=== PATIENT | male | born 1975 | race Caucasian/White ===

== ENCOUNTER 2018-03-10 09:31 | Outpatient (REF) | payer MEDICAID, SELFPAY ==
[2018-03-14 11:16] LABS: Benzoylecgonine 209 ng/mL (Cutoff: 50); Cocaine Negative ng/mL (Cutoff: 50); Cocaine Interpretation Positive.
== END 2018-03-10 09:51 ==
LOC: NCHCN 09:31
PROVIDERS: PCP Family Medicine; Visit Provider Family Medicine
DX: F11.20 Opioid dependence, uncomplicated (principal)
CPT/HCPCS: 80353

== ENCOUNTER 2018-10-30 07:51 | Emergency (ER) | payer MEDICAID, SELFPAY ==
[2018-10-30 08:00] VITALS: BP 140/78; PULSE 88; RESP 16; TEMP 36.7; O2SAT 93
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
[2018-10-30] MEDS: Ibuprofen 600 MG TAB PO (08:20)
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
== END 2018-10-30 09:15 | disposition home or self-care (01) ==
PROVIDERS: Emergency Provider Physician Assistant; PCP Family Medicine
DX: S93.401A Sprain of unspecified ligament of right ankle, initial encounter (principal); S93.601A Unspecified sprain of right foot, initial encounter; V43.03XA Car driver injured in collision with pick-up truck in nontraffic accident, initial encounter
CPT/HCPCS: 99284; 73610; 73630; 99282

== ENCOUNTER 2018-12-07 13:08 | Emergency (ER) | payer MEDICAID, OTHER, SELFPAY ==
[2018-12-07 13:21] VITALS: BP 107/67; PULSE 69; RESP 18; TEMP 36.8; O2SAT 95
--- NOTE | 2018-12-07 13:28 | DI.RAD_ITS ---
SYMPTOMS/DIAGNOSIS: LATERAL PAIN AND SWELLING LEFT ANKLE: Three views were obtained. The ankle mortise appears well maintained. There is minimal marginal osteophyte formation at multiple sites. No other significant bony abnormality seen. 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
--- NOTE | 2018-12-07 13:28 | W.ED.GENAD ---
Discharge Plan Disposition Patient Disposition: HOME Condition: Improving Discharge Details Chief Complaint: Orthopedic Clinical Impression: Left ankle sprain Primary Care Provider: Juan Diego Pop ED Provider: Domingo Salazar Home Meds and New Rx's Prescriptions: Continued buprenorphine-naloxone [Suboxone] 1 EACH film 1 film PO DAILY RF: 0 ibuprofen 600 MG tablet 600 mg PO QID PRN PRN (Reason: Pain) Qty: 30 RF: 0 Discharge Instructions Instructions: Ankle Sprain (ED) Additional Instructions: Ice, elevate to reduce pain and swelling. May use Tylenol and/or ibuprofen as needed for discomfort. Walking boot to be used 7 to 10 days time at which point you may wean from immobilization. Medical Decision Making 43-year-old male presents from home after rolling his ankle while descending a ladder. He did not fall or hurt himself in any other way. He has left lateral malleoli or tenderness and swelling. Referred for x-ray which does not reveal underlying fracture, soft tissue swelling present. Consistent with lateral ankle sprain. Will place an equalizer walking boot. Patient understands outpatient plan of care, follow-up, return instructions. HPI General Mode of arrival: wheelchair. Date/Time Provider Initiated Documentation: 12/07/18 13:26. Limitations to Documentation: no limitations. Information obtained by: patient. History of Present Illness 43 year old M presents to the emergency department with the chief complaint of Rolled left ankle, described as moderate, Quality is described as aching and dull, and is localized to the left and lower extremity. Patient reports no radiation. Patient started experiencing this minute(s) and it has been constant. No relieving factors improve symptom(s), No exacerbating factors reported . Patient notes no other symptoms.. Patient did receive the following treatments prior to arrival, none Related Data Home Medications Medication Instructions Recorded Confirmed buprenorphine-naloxone [Suboxone] 1 film PO DAILY 04/30/15 12/07/18 ibuprofen 600 mg PO QID PRN PRN #30 tablet 04/30/15 12/07/18 Previous Rx's Medication Instructions Recorded ibuprofen 600 mg PO QID PRN PRN #30 tablet 04/30/15 Allergies Allergy/AdvReac Type Severity Reaction Status Date / Time No Known Allergies Allergy Unverified 12/07/18 13:24 General Stated Complaint: Orthopedic JACEY: 4 Review of Systems Review of Systems No numbness or tingling. Denies other injury 6 systems reviewed and negative [facility] Medical History Narcotic abuse in remission (Acute) Surgical History No significant past surgical history (Acute) Social History Smoking/Tobacco Use Status: Current every day Drug use: Occasionally Do you feel safe at home: Yes Do you feel safe in your relationship?: Yes Exam Narrative Exam Narrative: GEN: awake, alert, oriented 3. Pleasant, well groomed, interactive. HEAD: Normocephalic, atraumatic ENT: Mucous membranes moist, oropharynx unremarkable, External ear exam unremarkable EYES: PERRL, EOMI EXT: The left lower extremity has lateral malleoli are tenderness and swelling. 2+ DP present. Sensation intact throughout. Motor is limited by pain Neuro: Grossly normal neurologic exam, conversant, interactive. Psych: Speech fluent, thoughts congruent, affect normal Course Vital Signs Temperature 36.8 C 12/07/18 13:21 Pulse 69 12/07/18 13:21 Respiratory Rate 18 12/07/18 13:21 Blood Pressure 107/67 12/07/18 13:21 Pulse Oximetry 95 12/07/18 13:21 Temperature 36.8 C 12/07/18 13:21 Temperature Source Temporal Artery Scan 12/07/18 13:21 Pulse 69 12/07/18 13:21 Respiratory Rate 18 12/07/18 13:21 Respiratory Effort Non-Labored 12/07/18 13:22 Blood Pressure 107/67 12/07/18 13:21 Blood Pressure Position Sitting 12/07/18 13:21 Pulse Oximetry 95 12/07/18 13:21 Oxygen Delivery Method Room Air 12/07/18 13:21 Oxygen Flow Rate 0 12/07/18 13:21 Pain Level 10 12/07/18 13:23
--- NOTE | 2018-12-07 13:31 | ED.GENADUL_ITS ---
Discharge Plan Disposition Patient Disposition: HOME Condition: Improving Discharge Details Chief Complaint: Orthopedic Clinical Impression: Left ankle sprain Primary Care Provider: Juan Diego Pop ED Provider: Domingo Salazar Home Meds and New Rx's Prescriptions: Continued buprenorphine-naloxone [Suboxone] 1 EACH film 1 film PO DAILY RF: 0 ibuprofen 600 MG tablet 600 mg PO QID PRN PRN (Reason: Pain) Qty: 30 RF: 0 Discharge Instructions Instructions: Ankle Sprain (ED) Additional Instructions: Ice, elevate to reduce pain and swelling. May use Tylenol and/or ibuprofen as needed for discomfort. Walking boot to be used 7 to 10 days time at which point you may wean from immobilization. Medical Decision Making 43-year-old male presents from home after rolling his ankle while descending a ladder. He did not fall or hurt himself in any other way. He has left lateral malleoli or tenderness and swelling. Referred for x-ray which does not reveal underlying fracture, soft tissue swelling present. Consistent with lateral ankle sprain. Will place an equalizer walking boot. Patient understands outpatient plan of care, follow-up, return instructions. HPI General Mode of arrival: wheelchair . Date/Time Provider Initiated Documentation: 12/07/18 13:26 . Limitations to Documentation: no limitations . Information obtained by: patient . History of Present Illness 43 year old M presents to the emergency department with the chief complaint of Rolled left ankle, described as moderate, Quality is described as aching and dull, and is localized to the left and lower extremity. Patient reports no radiation. Patient started experiencing this minute(s) and it has been constant. No relieving factors improve symptom(s), No exacerbating factors reported . Patient notes no other symptoms.. Patient did receive the following treatments prior to arrival, none Related Data Home Medications Medication Instructions Recorded Confirmed buprenorphine-naloxone [Suboxone] 1 film PO DAILY 04/30/15 12/07/18 ibuprofen 600 mg PO QID PRN PRN #30 tablet 04/30/15 12/07/18 Previous Rx's Medication Instructions Recorded ibuprofen 600 mg PO QID PRN PRN #30 tablet 04/30/15 Allergies Allergy/AdvReac Type Severity Reaction Status Date / Time No Known Allergies Allergy Unverified 12/07/18 13:24 General Stated Complaint: Orthopedic JACEY: 4 Review of Systems Review of Systems No numbness or tingling. Denies other injury 6 systems reviewed and negative [facility] Medical History Narcotic abuse in remission (Acute) Surgical History No significant past surgical history (Acute) Social History Smoking/Tobacco Use Status: Current every day Drug use: Occasionally Do you feel safe at home: Yes Do you feel safe in your relationship?: Yes Exam Narrative Exam Narrative: GEN: awake, alert, oriented 3. Pleasant, well groomed, interactive. HEAD: Normocephalic, atraumatic ENT: Mucous membranes moist, oropharynx unremarkable, External ear exam unremarkable EYES: PERRL, EOMI EXT: The left lower extremity has lateral malleoli are tenderness and swelling. 2+ DP present. Sensation intact throughout. Motor is limited by pain Neuro: Grossly normal neurologic exam, conversant, interactive. Psych: Speech fluent, thoughts congruent, affect normal Course Vital Signs Temperature 36.8 C 12/07/18 13:21 Pulse 69 12/07/18 13:21 Respiratory Rate 18 12/07/18 13:21 Blood Pressure 107/67 12/07/18 13:21 Pulse Oximetry 95 12/07/18 13:21 Temperature 36.8 C 12/07/18 13:21 Temperature Source Temporal Artery Scan 12/07/18 13:21 Pulse 69 12/07/18 13:21 Respiratory Rate 18 12/07/18 13:21 Respiratory Effort Non-Labored 12/07/18 13:22 Blood Pressure 107/67 12/07/18 13:21 Blood Pressure Position Sitting 12/07/18 13:21 Pulse Oximetry 95 12/07/18 13:21 Oxygen Delivery Method Room Air 12/07/18 13:21 Oxygen Flow Rate 0 12/07/18 13:21 Pain Level 10 12/07/18 13:23
[2018-12-07] MEDS: Ibuprofen 800 MG TAB PO (14:05)
== END 2018-12-07 14:48 | disposition home or self-care (01) ==
PROVIDERS: Emergency Provider Emergency Medicine; PCP Family Medicine
DX: S93.402A Sprain of unspecified ligament of left ankle, initial encounter (principal); X50.9XXA Other and unspecified overexertion or strenuous movements or postures, initial encounter
CPT/HCPCS: 29515; 99283; 73610; 99282; L4361

== ENCOUNTER 2018-12-08 14:07 | Outpatient (CLI) | payer MEDICAID, SELFPAY ==
--- NOTE | 2018-12-08 09:23 | DI.RAD_ITS ---
SYMPTOM/DIAGNOSIS: ANKLE INJURY RIGHT TIB-FIB: Four views. Comparison is made with ankle examination of 12/07/18. No acute fracture or dislocation is seen. No suspicious lytic or sclerotic lesions are identified. The soft tissues are unremarkable. IMPRESSION: No acute abnormality.
== END 2018-12-08 14:27 ==
PROVIDERS: Visit Provider Physician Assistant
DX: S99.911A Unspecified injury of right ankle, initial encounter (principal)
CPT/HCPCS: 73590

== ENCOUNTER 2019-03-09 16:35 | Emergency (ER) | payer MEDICAID, SELFPAY ==
[2019-03-09 16:36] VITALS: BP 150/87; PULSE 95; RESP 16; TEMP 37.1; O2SAT 93
--- NOTE | 2019-03-09 16:52 | DI.RAD_ITS ---
EXAM: XR CHEST 2V PA LATERAL INDICATION: cough. COMPARISON: CHEST 2 VIEWS PA,LAT from 07/12/2017 TECHNIQUE: 2D digital imaging was performed. FINDINGS: The lungs are well expanded and free of infiltrate. There is no evidence of a pleural effusion or pn eumothorax. The heart is normal. No acute bony abnormality is seen. IMPRESSION: No evidence of acute cardiopulmonary disease.
--- NOTE | 2019-03-09 16:55 | ED.GENADUL_ITS ---
Discharge Plan Disposition Patient Disposition: HOME Condition: Good Discharge Details Chief Complaint: RespSymp Clinical Impression: URI (upper respiratory infection), Acute bronchospasm Primary Care Provider: Juan Diego Pop ED Provider: Ashwini Kevin Home Meds and New Rx's Prescriptions: New azithromycin 250 mg tablet See Rx Instructions .ROUTE .COMPLEX Qty: 6 RF: 0 albuterol sulfate [Proventil HFA] 90 mcg/actuation HFA aerosol inhaler 2 puff IH Q6H PRN (Reason: shortness of breath or wheezing) Qty: 8 RF: 0 benzonatate [Tessalon Perles] 100 mg capsule 100 mg PO TID PRN (Reason: cough) Qty: 10 RF: 0 No Action ibuprofen 800 mg tablet 800 mg PO TID PRN (Reason: pain) Qty: 90 RF: 2 buprenorphine-naloxone [Suboxone] 1 EACH film 1 film PO DAILY MDD 8 mg RF: 0 Discharge Instructions Instructions: Upper Respiratory Infection (ED), Bronchospasm (ED) Additional Instructions: Drink plenty of fluids. Use antibiotic as prescribed. Rest activities as tolerated. Inhaler as prescribed. Cough medication as prescribed Increase vitamin C. Follow-up with your primary care doctor for reevaluation if not improving the next 3 to 5 days. Return for any worsening, alarming symptoms or concerns sooner if needed Medical Decision Making 43-year-old patient who presents for complaints of 10 days of cough and congestion. Patient reports initially viral type symptoms now reporting increase in cough, wheezing, shortness of breath and ill feeling. Patient is concerned he has pneumonia. Ultimately on chest x-ray he does not have an identifiable pneumonia at this time. Patient was provided a updraft which did significantly help his cough and congestion. Will be provided inhaler for home as well as cough medication. Azithromycin prescribed as he reports an increase in ill feeling after 10 days of illness. Patient agrees with plan of care. Encourage close follow-up with his primary care doctor if not improving in the expected timeframe of 3 to 5 days. Patient reports his understanding. Alarming symptoms discussed. The patient was stable and requested discharge. Prior to discharge, my usual and customary return precautions were reviewed with the patient - this included follow-up instructions and reasons to return to the Emergency Department if conditions worsens, does not improve as expected, or other new concerns arise. HPI General Date/Time Provider Initiated Documentation: 03/09/19 16:45 . HPI Narrative: Very pleasant 43-year-old man presents for complaints of cough, shortness of breath, wheezing and illness. Patient reports 10 days ago onset of nasal congestion, sore throat, sinus pain and pressure and coughing. Patient reports he is feeling increasingly ill in the last few days with associated shortness of breath and wheezing, cough more bothersome at night. Patient denies any measured fever. Patient denies nausea, vomiting, diarrhea. Patient is concerned with productive cough and discoloration of nasal drainage for possible bacterial infection. Patient concerned he may have pneumonia. Denies headache or dizziness. No other concerns or complaints at this time. Related Data Home Medications Medication Instructions Recorded Confirmed buprenorphine-naloxone [Suboxone] 1 film PO DAILY MDD 8 mg 04/30/15 03/09/19 ibuprofen 800 mg tablet 800 mg PO TID PRN #90 tab 12/08/18 03/09/19 albuterol sulfate [Proventil HFA] 2 puff IH Q6H PRN #8 gm 03/09/19 azithromycin See Rx Instructions .ROUTE 03/09/19 .COMPLEX #6 tab benzonatate [Tessalon Perles] 100 mg PO TID PRN #10 cap 03/09/19 Previous Rx's Medication Instructions Recorded ibuprofen 800 mg tablet 800 mg PO TID PRN #90 tab 12/08/18 albuterol sulfate [Proventil HFA] 2 puff IH Q6H PRN #8 gm 03/09/19 azithromycin See Rx Instructions .ROUTE 03/09/19 .COMPLEX #6 tab benzonatate [Tessalon Perles] 100 mg PO TID PRN #10 cap 03/09/19 Allergies Allergy/AdvReac Type Severity Reaction Status Date / Time No Known Allergies Allergy Unverified 03/09/19 16:41 General Stated Complaint: RespSymp JACEY: 3 Review of Systems Review of Systems ROS Unobtainable: All systems reviewed & are unremarkable except as noted in HPI and below Constitutional Constitutional: Denies chills, Denies fever(s) and Reports malaise ENT Ears, Nose, Mouth, and Throat: Denies otalgia, Reports nasal discharge, Reports sinus pain, Reports sinus pressure and Reports sore throat Respiratory Respiratory: Reports cough and Reports wheezing Gastrointestinal Gastrointestinal: Denies diarrhea, Denies nausea and Denies vomiting Allergic/Immunologic Allergic/Immunologic: Reports wheezing [facility] Medical History Narcotic abuse in remission (Acute) Surgical History No significant past surgical history (Acute) Social History Smoking/Tobacco Use Status: Current every day Alcohol Intake: never Drug use: Occasionally Substance use type: marijuana Do you feel safe at home: Yes Do you feel safe in your relationship?: Yes Exam Narrative Exam Narrative: CONST: Healthy appearing patient, in no acute distress. Well hydrated. Alert and alert. HENMT: Head nomocephalic, normal to inspection. Atraumatic. Hearing grossly normal. Pharyngeal erythema present. No TM bulging, mild erythema present. EYES: General normal appearance. Alignment normal. Eyelids normal. Conjunctiva normal. NECK: Normal visual inspection. FROM. Trachea midline. No Midline tenderness. Cervical lymphadenopathy present CHEST: Normal insepection of the chest. RESP: Normal respiratory effort. Speaking full sentences. No cough. Diffuse scattered wheezes. No retractions. CARDIO: No JVD. No murmurs or rubs. MUSCULOSKELETAL: Normal Gait. FROM of all extremities. SKIN: Normal. Dry. No rashes. NEURO: Alert and awake. Speech clear. PSYCH: Normal affect. Cooperative. Course Vital Signs Vital signs: Vital Signs Temperature 37.1 C 03/09/19 16:36 Pulse 95 H 03/09/19 16:36 Respiratory Rate 16 03/09/19 16:36 Blood Pressure 150/87 H 03/09/19 16:36 Pulse Oximetry 93 L 03/09/19 16:36 Temperature 37.1 C 03/09/19 16:36 Temperature Source Skin 03/09/19 16:36 Pulse 95 H 03/09/19 16:36 Respiratory Rate 16 03/09/19 16:36 Respiratory Effort 03/09/19 16:44 Respiratory Depth Normal 03/09/19 16:44 Blood Pressure 150/87 H 03/09/19 16:36 Blood Pressure Position Sitting 03/09/19 16:36 Pulse Oximetry 93 L 03/09/19 16:36 Oxygen Delivery Method Room Air 03/09/19 16:36 Oxygen Flow Rate 0 03/09/19 16:36 Pain Level 7 03/09/19 16:36 Comment has not been smoking past couple days 03/09/19 16:36
[2019-03-09] MEDS: Albuterol/Ipratropium 3 ML UPD VIAL UPD (17:39)
--- NOTE | 2019-03-09 18:05 | DI.VRAD_ITS ---
PROCEDURE INFORMATION: Exam: XR Chest, 2 Views Exam date and time: 03/09/2019 6:00 PM Clinical history: 43 years old, male; Other: Cough TECHNIQUE: Imaging protocol: XR of the chest Views: 2 views. COMPARISON: CR CHEST 2 VIEWS PA,LAT 07/12/2017 10:37 AM FINDINGS: Lungs: Unremarkable. No consolidation. Pleural space: Unremarkable. No pleural effusion. No pneumothorax. Heart/Mediastinum: Unremarkable. No cardiomegaly. Bones/joints: Unremarkable. IMPRESSION: No acute findings. Dictated and Authenticated by: Roseline Alvarez MD. Ordering:TYLER Maradiaga MD
[2019-03-09 18:59] VITALS: BP 140/77; PULSE 90; TEMP 37.4; O2SAT 91
[2019-03-09 19:02] VITALS: BP 140/77; PULSE 90; TEMP 37.4; O2SAT 91
== END 2019-03-09 19:06 | disposition home or self-care (01) ==
PROVIDERS: Emergency Provider Physician Assistant; PCP Family Medicine
DX: J06.9 Acute upper respiratory infection, unspecified (principal); J98.01 Acute bronchospasm
CPT/HCPCS: 94640; 99283; 71046; J7620

== ENCOUNTER 2020-04-15 10:45 | Outpatient (CLI) | payer MEDICAID, SELFPAY ==
--- NOTE | 2020-04-15 | DI.RAD_ITS ---
EXAM: XR ANKLE RT COMPLETE CLINICAL HISTORY: ANKLE PAIN RT, M25.571, RECURRENCE OF HIGH ANKLE SPRAIN ?. TECHNIQUE: 2D digital imaging was performed. COMPARISON: CR XR ANKLE RT COMPLETE from 10/30/2018 CR XR ANKLE RT COMPLETE from 04/15/2020 FINDINGS: BONES: No acute fracture is present. No bony destructive lesion is seen. JOINTS: The ankle mortise is normally aligned. SOFT TISSUE: Normal. IMPRESSION: Unremarkable radiographs of the right ankle. DATA REPOSITORY: RADIATION DOSE DELIVERED:
--- NOTE | 2020-04-15 | DI.RAD_ITS ---
EXAM: XR ANKLE RT COMPLETE CLINICAL HISTORY: FOOT DEFORMITY, M21.6x9, FIRM MOBILE NODULE OVER 1ST TOE COMP DEP PROTOCAL.. TECHNIQUE: 2D digital imaging was performed. COMPARISON: CR XR ANKLE RT COMPLETE from 04/15/2020 FINDINGS: BONES: No acute fracture is present. No bony destructive lesion is seen. JOINTS: No dislocation present. Mild degenerative changes in the foot. SOFT TISSUE: Normal. IMPRESSION: No acute fracture or dislocation of the right foot. DATA REPOSITORY: RADIATION DOSE DELIVERED:
== END 2020-04-15 11:05 ==
PROVIDERS: PCP Family Medicine; Visit Provider Family Medicine
DX: M21.6X1 Other acquired deformities of right foot (principal); M25.571 Pain in right ankle and joints of right foot
CPT/HCPCS: 73610

== ENCOUNTER 2020-06-11 09:41 | Emergency (ER) | payer MEDICAID, SELFPAY ==
[2020-06-11] VITALS (11 sets, daily range): BP systolic 117–124; BP diastolic 68–99; PULSE 49–68; RESP 9–25; TEMP 36.1–36.7; O2SAT 94–98
--- OUTSIDE RECORDS SUMMARY | 2020-06-11 09:53 | XMS_ITS ---
:1975 Author Care Team Providers Name Role Phone DR. FRANCINE ABARCA Primary Care Provider [phone] DR. FRANCINE ABARCA Referring Provider [phone] Allergies Code Code System Name Reaction Severity Status Onset NKDA ? Medications Name Status Start Date Stop Date ? ? Nicoderm CQ 21 mg/24 hr daily transdermal patch Active ? Not available Apply 1 patch every day by transdermal route. Nicorette 2 mg gum Active ? Not available Chew 1 piece of gum every 2 hours by oral route. omeprazole 20 mg tablet,delayed release Completed ? 08/24/2017 Take 1 tablet every day by oral route. Suboxone 8 mg-2 mg sublingual film Active ? Not available Place 1 film every day by sublingual route. triamcinolone acetonide 0.5 % topical cream Completed ? 08/24/2017 APPLY A THIN LAYER TO THE AFFECTED AREA(S) BY TOPICAL ROUTE 2 T IMES PER DAY Problems Name Status Onset Date Source ? Onychomycosis Active ? ? Anxiety Disorder Active ? ? Opioid Dependence Active ? ? Attention Deficit Hyperactivity Disorder Active ? ? Insomnia Active ? ? Tarsal Tunnel Syndrome Active ? ? Dental Caries Active ? ? Gastroesophageal Reflux Disease Active ? ? Psoriasis Active ? ? Lichen Planus Active ? ? Torticollis Active ? ? Plantar Fasciitis Active ? ? Paresthesia Active ? ? Pleuritic Pain Active ? ? History of Smoking Active ? ? Family History of Diabetes Mellitus Active ? ? Foreign Body Active ? ? Procedures None recorded. Results Lab Results None recorded. Past Encounters None recorded. Social History Tobacco Smoking Status Current Every Day Smoker Notes: Vaccine List None recorded. Plan of Care Reminders Provider Appointments None ? ? recorded. Lab None ? ? recorded. Referral None ? ? recorded. Procedures None ? ? recorded. Surgeries None ? ? recorded. Imaging None ? ? recorded. Vitals Height Weight BMI Blood Pressure 190.5 cm 129.27 kg 35.6 kg/m2 124/78 mm[Hg]
[2020-06-11] MEDS: Normal Saline 1,000 ML 1000 ML IV (10:06)
[2020-06-11] MEDS: Ondansetron 4 MG/2 ML VIAL IVP (10:10)
[2020-06-11 10:18] LABS: Abs Immature Grans 0.02 10^3/uL (0.0-0.06); Absolute Basophil Count 0.04 10^3/uL (0.0-0.2); Absolute Eosinophil Count 0.45 10^3/uL (0.0-0.7); Absolute Lymphocyte Count 3.01 10^3/uL (1.2-3.4); Absolute Monocyte Count 1.06 10^3/uL (0.1-0.8); Absolute Neutrophil Count 4.93 10^3/uL (1.2-6.7); Basophils % 0.4; Eosinophils % 4.7; Immature Grans % 0.2; Lymphocytes % 31.7; MCHC 33.3 % (32.0-36.0); MCV 93.1 fL (80-95); MPV 9.7 fL (8.0-11.0); Monocytes % 11.1; Neutrophils % 51.9; Nucleated RBC 0 %; Platelet Count 323 10^3/uL (130-400); RBC 4.51 10^6/uL (4.36-5.78); RDW 12.2 % (11.8-14.1); WBC 9.51 10^3/uL (4.4-10.8)
[2020-06-11 10:21] LABS: Bilirubin Negative (Negative); Blood Negative (Negative); Clarity Clear (Clear); Glucose Negative (Negative); Ketones Negative (Negative); Leukocyte Esterase Negative (Negative); Nitrite Negative (Negative); Specific Gravity >= 1.030 (1.005-1.025); Urobilinogen 0.2 EU/dL (Up TO 0.2)
[2020-06-11 10:29] LABS: ALT 34 U/L (16-63); AST 21 U/L (15-37); Albumin 3.6 g/dL (3.4-5.0); Alkaline Phosphatase 102 U/L (46-116); Anion Gap 8.4 mmol/L (3-11); BUN 20 mg/dL (7-18); Bilirubin, Total 0.2 mg/dL (0.2-1.0); CO2 27.6 mmol/L (21.0-32.0); CREATININE 1.26 mg/dL (0.70-1.30); Calcium 8.3 mg/dL (8.5-10.1); Chloride 103 mmol/L (98-107); Glucose 106 mg/dL (74-106); Lipase 269 U/L (73-393); Potassium 4.2 mmol/L (3.5-5.1); Sodium 139 mmol/L (136-145); Total Protein 6.9 g/dL (6.4-8.2)
--- NOTE | 2020-06-11 10:45 | DI.US_ITS ---
EXAM: US ABDOMEN CLINICAL HISTORY: RUQ pain TECHNIQUE: Ultrasound abdomen performed using standard protocol. COMPARISON: No exams were available for comparison FINDINGS: LIVER: Enlarged, measuring 18.6 cm in length. Increased echogenicity, consistent with mild fatty inf iltration. No focal liver lesions are seen.. GALLBLADDER: No evidence of cholelithiasis. No evidence of wall thickening. No pericholecystic fluid identified. SOSA'S SIGN: Negative. BILIARY SYSTEM: No intrahepatic or extrahepatic biliary ductal dilation. KIDNEYS: Kidneys are symmetric in size. No evidence of renal calculi. No evidence of hydronephrosis. No renal mass or cyst identified. PANCREAS: Normal where visualized. SPLEEN: Not enlarged. Scattered calcifications consistent with old healed granulomatous disease. ABDOMINAL AORTA AND IVC: Visualized portions normal caliber. ASCITES: None seen. IMPRESSION: Hepatomegaly. Mild fatty infiltration. DATA REPOSITORY:
--- NOTE | 2020-06-11 11:40 | W.ED.GENAD ---
Discharge Plan Disposition Patient Disposition: HOME Condition: Stable Discharge Details Clinical Impression: Abdominal pain, Biliary colic Primary Care Provider: Juan Diego Pop ED Provider: Júnior Eddy Home Meds and New Rx's Prescriptions: New ondansetron HCl [Zofran] 4 mg tablet 4 mg PO Q8H PRNQty: 10 RF: 0 Continued ibuprofen 800 mg tablet 800 mg PO TID PRN (Reason: pain) Qty: 90 RF: 2 buprenorphine-naloxone [Suboxone] 1 EACH film 1 film PO DAILY MDD 8 mg RF: 0 albuterol sulfate [Proventil HFA] 90 mcg/actuation HFA aerosol inhaler 2 puff IH Q6H PRN (Reason: shortness of breath or wheezing) Qty: 8 RF: 0 Discharge Instructions Instructions: Biliary Colic (ED), Abdominal Pain (ED) Additional Instructions: Laboratory values and ultrasound did not reveal any obvious emergent process. Incidental fatty liver found however I do not believe that is causing your symptoms today. As we discussed this is likely your gallbladder. Zofran as directed. We discussed dietary precautions such as avoiding fatty, fried, greasy foods. [id number] Tylenol and/or Motrin as directed for discomfort. Please watch for new or worsening symptoms and return to the ER for any concerns. I would like you to reach out to the surgical team tomorrow for prompt outpatient reevaluation. I have placed you on the surgical list and given you Dr. Harris's name and number. Referrals: Laurel Harris DO [OSTEOPATHIC DOCTOR] - Discharge Data Discharge Date/Time-TO BE ENTERED AT DEPARTURE: 06/11/20 12:32 Medical Decision Making 44-year-old gentleman with past history that includes opiate abuse, in remission for the past 7 years, presents for abdominal pain right upper quadrant and nausea for the past 2 days worsening in nature. Reports that pain is made slightly worse after eating but not significantly. No other symptoms whatsoever. Clinically he appears well, nontoxic. He is afebrile and normotensive. He does have reproducible right upper quadrant discomfort. Clinically certainly suspicious for biliary colic, acute cholecystitis, etc. but certainly cannot rule out pancreatitis, musculoskeletal strain, gastritis, peptic ulcer disease, appendicitis, etc. Will obtain IV access, CBC, CMP, lipase, urinalysis and give 4 mg IV Zofran. Patient is requesting to drink his [employer] coffee, requests that he be n.p.o. until we complete his work-up. CBC, CMP, lipase, urinalysis unremarkable for obvious emergent process. Patient reports that his nausea is improving with Zofran. Given his right upper quadrant pain but normal laboratory studies, will obtain ultrasound of his abdomen. Ultrasound read by radiology as hepatomegaly, mild fatty infiltrate, otherwise unremarkable. Negative Kilpatrick sign. Dr. Hernandez evaluated the patient, please see his note. Discussed ultrasound and laboratory values with patient. He is relieved, but we still do not have a clear source of his pain. He is scheduled to be seen by his primary care provider tomorrow. Given his right upper quadrant discomfort, nausea, made worse with food, will also place on the surgical list and give a surgical referral. We discussed dietary changes for potential biliary colic. We will also provide a prescription of Zofran for his symptoms. Patient is comfortable with this plan and has no additional questions or concerns. He was encouraged to return to the ER for new or worsening symptoms. Medical Records Medical records reviewed: Yes I reviewed the patient's medical records. Lab Data Lab results reviewed: Yes I reviewed the patient's lab results. Labs: Laboratory Tests Range/Units 06/11/20 06/11/20 06/11/20 10:04 10:04 10:05 WBC (4.4-10.8) 10^3/uL 9.51 RBC (4.36-5.78) 10^6/uL 4.51 Hgb (13.5-17.5) g/dL 14.0 Hct (40.0-50.0) % 42.0 MCV (80-95) fL 93.1 MCH (27.0-33.0) pg 31.0 MCHC (32.0-36.0) % 33.3 RDW (11.8-14.1) % 12.2 Plt Count (130-400) 10^3/uL 323 MPV (8.0-11.0) fL 9.7 Immature Gran % 0.2 Neutrophils % 51.9 Lymphocytes % 31.7 Monocytes % 11.1 Eosinophils % 4.7 Basophils % 0.4 Nucleated RBC % % 0 Absolute Neutrophils (1.2-6.7) 10^3/uL 4.93 Absolute Lymphocytes (1.2-3.4) 10^3/uL 3.01 Absolute Monocytes (0.1-0.8) 10^3/uL 1.06 H Absolute Eosinophils (0.0-0.7) 10^3/uL 0.45 Absolute Basophils (0.0-0.2) 10^3/uL 0.04 Sodium (136-145) mmol/L 139 Potassium (3.5-5.1) mmol/L 4.2 Chloride (98-107) mmol/L 103 Carbon Dioxide (21.0-32.0) mmol/L 27.6 Anion Gap (3-11) mmol/L 8.4 BUN (7-18) mg/dL 20 H Creatinine (0.70-1.30) mg/dL 1.26 Estimated GFR/1.73 m2 (mL/min/1.73m2) >= 60.00 Glucose (74-106) mg/dL 106 Calcium (8.5-10.1) mg/dL 8.3 L Magnesium (1.8-2.4) mg/dL 2.0 Total Bilirubin (0.2-1.0) mg/dL 0.2 AST (15-37) U/L 21 ALT (16-63) U/L 34 Alkaline Phosphatase (46-116) U/L 102 Total Protein (6.4-8.2) g/dL 6.9 Albumin (3.4-5.0) g/dL 3.6 Lipase (73-393) U/L 269 Urine Color (Yellow) Yellow Urine Clarity (Clear) Clear Urine pH (5-8) 6.0 Ur Specific [place] (1.005-1.025) >= 1.030 H Urine Protein (Negative) mg/dL Negative Urine Ketones (Negative) mg/dL Negative Urine Blood (Negative) Negative Urine Nitrite (Negative) Negative Urine Bilirubin (Negative) Negative Urine Urobilinogen (Up TO 0.2) EU/dL 0.2 Ur Leukocyte Esterase (Negative) Negative Urine Glucose (Negative) mg/dL Negative HPI General Mode of arrival: ambulatory. Date/Time Provider Initiated Documentation: 06/11/20 09:55. Limitations to Documentation: no limitations. Information obtained by: patient. HPI Narrative: This is a 44-year-old male, past medical history that includes narcotic abuse, in remission for 7 years. He is presenting to the ER today for evaluation of right upper quadrant pain and nausea that began 2 days ago. Denies recent illness or trauma. States the pain started as mild, now is moderate in nature. Food may make it slightly worse but is not overtly noticeable. He reports nausea but no vomiting. He presents drinking a [employer] coffee here in the ER. He denies fever, chest pain, shortness of breath, dysuria, hematuria, diarrhea or constipation. He reports that the pain occasionally radiates into his back. He denies ever having had symptoms like this before. Has not taken any [id number] medication for his symptoms. He is scheduled to be seen by his primary care provider tomorrow. Related Data Home Medications Medication Instructions Recorded Confirmed buprenorphine-naloxone [Suboxone] 1 film PO DAILY MDD 8 mg 04/30/15 06/11/20 ibuprofen 800 mg tablet 800 mg PO TID PRN #90 tab 12/08/18 06/11/20 albuterol sulfate [Proventil HFA] 2 puff IH Q6H PRN #8 gm 03/09/19 06/11/20 ondansetron HCl [Zofran] 4 mg PO Q8H PRN #10 tab 06/11/20 Previous Rx's Medication Instructions Recorded ibuprofen 800 mg tablet 800 mg PO TID PRN #90 tab 12/08/18 albuterol sulfate [Proventil HFA] 2 puff IH Q6H PRN #8 gm 03/09/19 ondansetron HCl [Zofran] 4 mg PO Q8H PRN #10 tab 06/11/20 Allergies Allergy/AdvReac Type Severity Reaction Status Date / Time No Known Allergies Allergy Unverified 06/11/20 09:49 General Stated Complaint: Abd Prob JACEY: 3 Review of Systems Constitutional Constitutional: Denies fever(s) and Denies headache(s) ENT Ears, Nose, Mouth, and Throat: Denies headache(s) Cardiovascular Cardiovascular: Denies chest pain and Denies dyspnea Respiratory Respiratory: Denies dyspnea Gastrointestinal Gastrointestinal: Reports abdominal pain, Denies constipation, Denies diarrhea, Reports nausea and Denies vomiting Genitourinary Genitourinary: Denies dysuria Musculoskeletal Musculoskeletal: Reports back pain Integumentary/Breasts Skin/Breast: Denies rash Neurologic Neurologic: Denies headache(s) [facility] Medical History Narcotic abuse in remission Surgical History No significant past surgical history Social History Smoking/Tobacco Use Status: Current every day Tobacco Type: cigarettes Smoking risk assessment performed?: Yes Alcohol Intake: never Drug use: Occasionally Substance use type: marijuana Do you feel safe at home: Yes Do you feel safe in your relationship?: Yes Exam Const General: cooperative, healthy appearing, comfortable and no acute distress Orientation: alert, awake and oriented x3 HENMT Head: normal to inspection, normocephalic and atraumatic Eyes General: appearance normal, both eyes and all related structures Conjunctivae: conjunctivae normal Sclera: sclerae normal Neck Neck: normal visual inspection, full ROM, no meningeal signs, trachea midline and supple Resp Effort & Inspection: normal respiratory effort and able to speak in complete sentences Auscultation: clear to auscultation bilaterally Cardio Rate: regular rate Rhythm: regular rhythm GI Inspection: normal to inspection Palpation: soft, not firm, no guarding, no pulsatile masses and tender in the LUQ; Kilpatrick's sign negative and with no rebound tenderness Auscultation: normal bowel sounds Back/Spine/Pelvis Back: back tenderness (Diffuse mild right upper lumbar, lower thoracic) Skin General skin exam: no rashes or lesions noted Neuro General: patient alert, patient awake, moves all extremities and no focal motor deficits Cognition: normal cognition Speech: speech normal Gait: normal gait Sensory Exam: no sensory deficits noted Psych Appearance: grossly normal Mental Status: mental status grossly normal Course Vital Signs Vital signs: Vital Signs Temperature 36.1 C L 06/11/20 09:44 Pulse 68 06/11/20 09:44 Blood Pressure 122/75 06/11/20 09:44 Pulse Oximetry 97 06/11/20 09:44 Temperature 36.1 C L 06/11/20 09:44 Temperature Source Temporal Artery Scan 06/11/20 09:44 Pulse 61 06/11/20 09:47 Pulse 55 L 06/11/20 10:40 Respiratory Rate 25 H 06/11/20 10:40 Respiratory Effort Non-Labored 06/11/20 09:48 Blood Pressure 122/75 06/11/20 09:47 Blood Pressure Mean 86 06/11/20 09:47 Blood Pressure Position Sitting 06/11/20 09:44 Pulse Oximetry 96 06/11/20 10:40 Oxygen Delivery Method Room Air 06/11/20 09:44 Oxygen Flow Rate 0 06/11/20 09:44 Pain Level 8 06/11/20 09:44 Lab/Test Results Lab/Test Results: Laboratory Tests Range/Units 06/11/20 06/11/20 06/11/20 10:04 10:04 10:05 WBC (4.4-10.8) 10^3/uL 9.51 RBC (4.36-5.78) 10^6/uL 4.51 Hgb (13.5-17.5) g/dL 14.0 Hct (40.0-50.0) % 42.0 MCV (80-95) fL 93.1 MCH (27.0-33.0) pg 31.0 MCHC (32.0-36.0) % 33.3 RDW (11.8-14.1) % 12.2 Plt Count (130-400) 10^3/uL 323 MPV (8.0-11.0) fL 9.7 Immature Gran % 0.2 Neutrophils % 51.9 Lymphocytes % 31.7 Monocytes % 11.1 Eosinophils % 4.7 Basophils % 0.4 Nucleated RBC % % 0 Absolute Neutrophils (1.2-6.7) 10^3/uL 4.93 Absolute Lymphocytes (1.2-3.4) 10^3/uL 3.01 Absolute Monocytes (0.1-0.8) 10^3/uL 1.06 H Absolute Eosinophils (0.0-0.7) 10^3/uL 0.45 Absolute Basophils (0.0-0.2) 10^3/uL 0.04 Sodium (136-145) mmol/L 139 Potassium (3.5-5.1) mmol/L 4.2 Chloride (98-107) mmol/L 103 Carbon Dioxide (21.0-32.0) mmol/L 27.6 Anion Gap (3-11) mmol/L 8.4 BUN (7-18) mg/dL 20 H Creatinine (0.70-1.30) mg/dL 1.26 Estimated GFR/1.73 m2 (mL/min/1.73m2) >= 60.00 Glucose (74-106) mg/dL 106 Calcium (8.5-10.1) mg/dL 8.3 L Magnesium (1.8-2.4) mg/dL 2.0 Total Bilirubin (0.2-1.0) mg/dL 0.2 AST (15-37) U/L 21 ALT (16-63) U/L 34 Alkaline Phosphatase (46-116) U/L 102 Total Protein (6.4-8.2) g/dL 6.9 Albumin (3.4-5.0) g/dL 3.6 Lipase (73-393) U/L 269 Urine Color (Yellow) Yellow Urine Clarity (Clear) Clear Urine pH (5-8) 6.0 Ur Specific [place] (1.005-1.025) >= 1.030 H Urine Protein (Negative) mg/dL Negative Urine Ketones (Negative) mg/dL Negative Urine Blood (Negative) Negative Urine Nitrite (Negative) Negative Urine Bilirubin (Negative) Negative Urine Urobilinogen (Up TO 0.2) EU/dL 0.2 Ur Leukocyte Esterase (Negative) Negative Urine Glucose (Negative) mg/dL Negative
--- NOTE | 2020-06-11 12:47 | NUR.NOTE ---
Referral to [facility] for [facility]-2 week follow up for abd painNursing Note:
== END 2020-06-11 12:32 | disposition home or self-care (01) ==
PROVIDERS: Emergency Provider Physician Assistant; PCP Family Medicine
DX: K76.0 Fatty (change of) liver, not elsewhere classified (principal); K82.9 Disease of gallbladder, unspecified
CPT/HCPCS: 36415; 80053; 83690; 96361; 96374; 99284; 76700; 81003; 83735; 85025; J2405

== ENCOUNTER 2020-06-12 16:24 | Outpatient (REF) | payer MEDICAID, SELFPAY ==
[2020-06-20 10:00] LABS: Benzoylecgonine 208 ng/mL (Cutoff: 50); Cocaine Negative ng/mL (Cutoff: 50); Cocaine Interpretation Positive.
== END 2020-06-12 16:44 ==
LOC: NCHCN 16:24
PROVIDERS: PCP Family Medicine; Visit Provider Family Medicine
DX: F11.20 Opioid dependence, uncomplicated (principal)
CPT/HCPCS: 80353

== ENCOUNTER 2020-08-07 19:18 | Outpatient (REF) | payer MEDICAID, SELFPAY ==
[2020-08-10 13:14] LABS: Codeine 224 ng/mL (Cutoff: 25); Dihydrocodeine Negative ng/mL (Cutoff: 25); Hydrocodone Negative ng/mL (Cutoff: 25); Hydromorphone Negative ng/mL (Cutoff: 25); Morphine 491 ng/mL (Cutoff: 25); Naloxone 366 ng/mL (Cutoff: 25); Norhydrocodone Negative ng/mL (Cutoff: 25); Noroxycodone Negative ng/mL (Cutoff: 25); Noroxymorphone Negative ng/mL (Cutoff: 25); Opiates Interpretation Positive.
== END 2020-08-07 19:19 | disposition home or self-care (01) ==
LOC: NCHCN 19:18
PROVIDERS: PCP Family Medicine; Visit Provider Family Medicine
DX: F11.20 Opioid dependence, uncomplicated (principal)
CPT/HCPCS: 80361; 80362

== ENCOUNTER 2020-10-23 17:56 | Outpatient (REF) | payer MEDICAID, SELFPAY ==
[2020-10-26 09:38] LABS: Benzoylecgonine 564 ng/mL (Cutoff: 50); Cocaine Negative ng/mL (Cutoff: 50); Cocaine Interpretation Positive.
== END 2020-10-23 17:57 | disposition home or self-care (01) ==
LOC: NCHCN 17:56
PROVIDERS: PCP Family Medicine; Visit Provider Family Medicine
DX: F11.20 Opioid dependence, uncomplicated (principal)
CPT/HCPCS: 80353

== ENCOUNTER 2020-11-06 20:49 | Outpatient (REF) | payer MEDICAID, SELFPAY ==
[2020-11-12 13:08] LABS: Benzoylecgonine 106 ng/mL (Cutoff: 50); Cocaine Negative ng/mL (Cutoff: 50); Cocaine Interpretation Positive.
== END 2020-11-06 20:50 | disposition home or self-care (01) ==
LOC: NCHCN 20:49
PROVIDERS: PCP Family Medicine; Visit Provider Family Medicine
DX: F11.20 Opioid dependence, uncomplicated (principal)
CPT/HCPCS: 80353

== ENCOUNTER 2021-01-01 06:08 | Emergency (ER) | payer MEDICAID, SELFPAY ==
[2021-01-01 06:10] VITALS: BP 131/66; PULSE 64; RESP 16; TEMP 36.4; O2SAT 98
--- NOTE | 2021-01-01 06:15 | ED.GENADUL_ITS ---
Discharge Plan Disposition Patient Disposition: HOME Condition: Stable Discharge Details Clinical Impression: Foreign body of right eye Primary Care Provider: Juan Diego Pop ED Provider: Roman Lobo Home Meds and New Rx's Prescriptions: Continued ibuprofen 800 mg tablet 800 mg PO TID PRN (Reason: pain) Qty: 90 RF: 2 pantoprazole 20 mg tablet,delayed release (DR/EC) 20 mg PO DAILY RF: 0 buprenorphine-naloxone [Suboxone] 2-0.5 mg film 1 film buccal DAILY RF: 0 triamcinolone acetonide 0.1 % cream 1 applic topical BID RF: 0 nicotine (polacrilex) 2 mg gum 2 mg buccal Q1H RF: 0 nicotine 21 mg/24 hr patch 24 hour 1 patch transdermal Q24H RF: 0 buprenorphine-naloxone [Suboxone] 1 EACH film 1 film PO DAILY MDD 8 mg RF: 0 ondansetron HCl [Zofran] 4 mg tablet 4 mg PO Q8H PRNQty: 10 RF: 0 albuterol sulfate [Proventil HFA] 90 mcg/actuation HFA aerosol inhaler 2 puff IH Q6H PRN (Reason: shortness of breath or wheezing) Qty: 8 RF: 0 Discharge Instructions Additional Instructions: You have a small foreign body and declined to have me attempt removal with a needle follow up with 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 Denies any falls or vision changes but has had right eye discomfort since so came here. He has no periorbital swelling, eomi, perrl. Left eye conjunctiva normal and right eye conjunctiva is erythematous, no drainage. HE does have what looks like a 1mm foreign body over the iris at the 5 oclock position, no other foreign bodies noted even under the eyelids. Will place tetracaine and attempt removal. 20/25 vision in both eyes on exam I placed tetracaine and had immediate relief of pain. I was able to removal a small 1mm foreign body at above stated location with a qtip, but just inferior this was another even small foreign body. I was unable to remove with q tip. I recommended attempting removal with needle but he declined. He states he'd rather have an child protective services specialist do this and is going to follow up with Kate. He understands risks of prolonging foreign body removal including decrease or permanent eye damage and is still willing to accept these risks and has capacity to make his own decisions. HE had reassuring flourescein testing that he has no globe rupture. I did advise if he is unable to see Paragnathalie today he should return to the Emergency dept for removal of the foreign body. Differential Diagnosis Differential Diagnosis: foreign body, corneal abrasion HPI General Mode of arrival: ambulatory . Date/Time Provider Initiated Documentation: 01/01/21 06:09 . Limitations to Documentation: no limitations . Information obtained by: patient . History of Present Illness 45 year old M presents to the emergency department with the chief complaint of right eye pain, described as moderate, Quality is described as aching, and is localized to the eyes and right. Patient reports no radiation. Patient started experiencing this day(s) (1) and it has been constant. No relieving factors improve symptom(s), No exacerbating factors reported . Patient notes no other symptoms.. Patient did receive the following treatments prior to arrival, none Related Data Home Medications Medication Instructions Recorded Confirmed buprenorphine-naloxone [Suboxone] 1 film PO DAILY MDD 8 mg 04/30/15 06/11/20 ibuprofen 800 mg tablet 800 mg PO TID PRN #90 tab 12/08/18 06/11/20 albuterol sulfate [Proventil HFA] 2 puff IH Q6H PRN #8 gm 03/09/19 06/11/20 ondansetron HCl [Zofran] 4 mg PO Q8H PRN #10 tab 06/11/20 buprenorphine 2 mg-naloxone 0.5 mg 1 film BUCCAL DAILY 06/13/20 sublingual film nicotine (polacrilex) 2 mg gum 2 mg BUCCAL Q1H 06/13/20 nicotine 21 mg/24 hr daily 1 patch TRANSDERMAL Q24H 06/13/20 transdermal patch pantoprazole 20 mg tablet,delayed 20 mg PO DAILY 06/13/20 release triamcinolone acetonide 0.1 % 1 applic TOPICAL BID 06/13/20 topical cream Previous Rx's Medication Instructions Recorded ibuprofen 800 mg tablet 800 mg PO TID PRN #90 tab 12/08/18 albuterol sulfate [Proventil HFA] 2 puff IH Q6H PRN #8 gm 03/09/19 ondansetron HCl [Zofran] 4 mg PO Q8H PRN #10 tab 06/11/20 Allergies Allergy/AdvReac Type Severity Reaction Status Date / Time No Known Allergies Allergy Unverified 01/01/21 06:15 General Stated Complaint: EyeProblem JACEY: 4 Review of Systems All systems reviewed & are unremarkable except as noted in HPI and below Constitutional Constitutional: Denies chills and Denies fever(s) Cardiovascular Cardiovascular: Denies chest pain and Denies dyspnea Respiratory Respiratory: Denies cough and Denies dyspnea Gastrointestinal Gastrointestinal: Denies abdominal pain, Denies nausea and Denies vomiting Musculoskeletal Musculoskeletal: Denies joint swelling COUNT INCLUDES THE [facility] Medical History (Updated 01/01/21 @ 06:31 by Roman Lobo MD) Narcotic abuse in remission Surgical History No significant past surgical history Social History Smoking/Tobacco Use Status: Current every day Tobacco Type: cigarettes Smoking risk assessment performed?: Yes Alcohol Intake: never Drug use: Occasionally Substance use type: marijuana Do you feel safe at home: Yes Do you feel safe in your relationship?: Yes Exam Const General: no acute distress Orientation: alert HENMT Head: normal to inspection Ears: external ears normal General nose exam: external nose normal Mouth: moist mucous membranes Eyes Alignment and Position: alignment normal Pupils: PERRL EOM: EOM intact bilaterally Neck Neck: normal visual inspection Resp Effort & Inspection: normal respiratory effort and able to speak in complete sentences Cardio Rate: regular rate Skin General skin exam: no rashes or lesions noted Neuro General: patient alert and patient oriented x3 Extrem General: normal to inspection Psych Mental Status: mental status grossly normal Course Vital Signs Vital signs: Vital Signs Temperature 36.4 C L 01/01/21 06:10 Pulse 64 01/01/21 06:10 Respiratory Rate 16 01/01/21 06:10 Blood Pressure 131/66 01/01/21 06:10 Pulse Oximetry 98 01/01/21 06:10 Temperature 36.4 C L 01/01/21 06:10 Temperature Source Temporal Artery Scan 01/01/21 06:10 Pulse 64 01/01/21 06:10 Respiratory Rate 16 01/01/21 06:10 Blood Pressure 131/66 01/01/21 06:10 Blood Pressure Position Sitting 01/01/21 06:10 Pulse Oximetry 98 01/01/21 06:10 Oxygen Delivery Method Room Air 01/01/21 06:10 Oxygen Flow Rate 0 01/01/21 06:10 Pain Level 7 01/01/21 06:10
[2021-01-01] MEDS: Tetracaine 0.5% 4 ML BTL OP (06:21)
[2021-01-01] MEDS: Erythromycin Ophth Oint 3.5 GM TUBE OP (06:23)
--- NOTE | 2021-01-01 06:39 | NUR.NOTE ---
Referral and Dr. white faxed to [facility] for a f/u foreign body right eye.Nursing Note:
== END 2021-01-01 06:37 | disposition home or self-care (01) ==
PROVIDERS: Emergency Provider Emergency Medicine; PCP Family Medicine
DX: T15.81XA Foreign body in other and multiple parts of external eye, right eye, initial encounter (principal); X58.XXXA Exposure to other specified factors, initial encounter; Y99.0 Civilian activity done for income or pay
CPT/HCPCS: 99283; 99284

== ENCOUNTER 2022-10-14 16:04 | Emergency (ER) | payer MEDICAID, SELFPAY ==
[2022-10-14 16:15] VITALS: BP 140/87; PULSE 77; RESP 18; TEMP 37.1; O2SAT 98
[2022-10-14] MEDS: Lidocaine 1% Multi-Dose W/EPI 1/100,000 50 ML VIAL (16:56)
--- NOTE | 2022-10-14 17:42 | ED.GENADUL_ITS ---
Discharge Plan Disposition Patient Disposition: Home Discharge Details Clinical Impression: Dog bite of right hand, Laceration of hand Primary Care Provider: Juan Diego Pop ED Provider: Akash Banks Home Meds and New Rx's Prescriptions: New amoxicillin-pot clavulanate 875-125 mg tablet 1 tab PO BID Qty: 12 0RF Continued ibuprofen 800 mg tablet 800 mg PO TID PRN (Reason: pain) Qty: 90 2RF Patient Comments: not taking pantoprazole 20 mg tablet,delayed release (DR/EC) 20 mg PO DAILY Patient Comments: not taking buprenorphine-naloxone [Suboxone] 2-0.5 mg film 1 film buccal DAILY Patient Comments: not taking Rx Instructions: place 1 strip/tab under (each) side of tongue triamcinolone acetonide 0.1 % cream 1 applic topical BID nicotine (polacrilex) 2 mg gum 2 mg buccal Q1H Patient Comments: not taking nicotine 21 mg/24 hr patch 24 hour 1 patch transdermal Q24H Patient Comments: not taking buprenorphine-naloxone [Suboxone] 1 EACH film 1 film PO DAILY MDD 8 mg ondansetron HCl [Zofran] 4 mg tablet 4 mg PO Q8H PRNQty: 10 0RF Patient Comments: not taking albuterol sulfate [Proventil HFA] 90 mcg/actuation HFA aerosol inhaler 2 puff IH Q6H PRN (Reason: shortness of breath or wheezing) Qty: 8 0RF Patient Comments: not taking Discharge Instructions Instructions: Animal Bite (ED), Laceration (ED) Additional Instructions: Watch for any signs of infection and return immediately to the emergency department if these occur. Otherwise keep dressing in place for the next 24-48 hours and then keep wound clean and dry. Return to the emergency department 12- 14 days for suture removal. Referrals: Juan Diego Pop [Primary Care Provider] - (As needed for reassessment) Discharge Data Discharge Date/Time-TO BE ENTERED AT DEPARTURE: 10/14/22 17:53 Medical Decision Making Patient presenting to the emergency department with chief complaint of dog bite to hand. He states that his dog and another dog were fighting and he attempted to break them up and his dog bit him. Reports that dog is up-to-date on immunizations and vaccinations he is unsure of his tetanus status personally ago. Physical exam shows findings consistent with dog bite to hand with 4.5 cm irregular flap laceration to the palmar aspect at the base of the thumb and 3 cm laceration to the ulnar aspect of the wrist. Patient has no bony tenderness, normal strength/ sensation, normal tendon function and cap refill intact distal to injury. Patient's tetanus was updated. Patient placed on Augmentin. Did discuss with patient risk versus benefit of wound repair given that it is a animal bite. Patient was agreeable to wound closure given extensive nature of wound. We copiously irrigated wound and wound was visualized to base with no signs of deep tissue injury that were evident. Please see procedure note for wound repair with palmar wound being closed with #4 3-0 sutures and wrist wound being closed with #2 3-0 prolene. After discussion of diagnosis and plan of care patient has no further needs, questions, or concerns and states clear understanding to return to the emergency department for any worsening symptoms. This documentation was generated using [employer] dictation system, please disregard any oddities of phrase or misspellings. HPI General Mode of arrival: ambulatory . Date/Time Provider Initiated Documentation: 10/14/22 16:22 . Limitations to Documentation: no limitations . Information obtained by: patient and RN notes reviewed . History of Present Illness 47 year old M presents to the emergency department with the chief complaint of Dog bite, right hand, described as moderate, Quality is described as sharp, and is localized to the right and upper extremity. Patient started experiencing this minute(s) (TENTER) and it has been constant. No relieving factors improve symptom(s), No exacerbating factors reported . Patient notes no other symptoms.. Patient did receive the following treatments prior to arrival, none Related Data Home Medications Medication Instructions Recorded Confirmed buprenorphine 8 mg-naloxone 2 mg 1 film PO DAILY 04/30/15 10/14/22 sublingual film (Suboxone) ibuprofen 800 mg tablet 800 mg PO TID PRN pain #90 tabs 12/08/18 06/11/20 albuterol sulfate 90 mcg/actuation 2 puff inhalation Q6H PRN 03/09/19 06/11/20 aerosol inhaler (Proventil HFA) shortness of breath or wheezing #8 grams ondansetron HCl 4 mg tablet 4 mg PO Q8H PRN #10 tabs 06/11/20 (Zofran) buprenorphine 2 mg-naloxone 0.5 mg 1 film buccal DAILY 06/13/20 sublingual film (Suboxone) nicotine (polacrilex) 2 mg gum 2 mg buccal Q1H 06/13/20 nicotine 21 mg/24 hr daily 1 patch transdermal Q24H 06/13/20 transdermal patch pantoprazole 20 mg tablet,delayed 20 mg PO DAILY 06/13/20 release triamcinolone acetonide 0.1 % 1 applic topical BID 06/13/20 topical cream amoxicillin 875 mg-potassium 1 tab PO BID #12 tabs 10/14/22 clavulanate 125 mg tablet Previous Rx's Medication Instructions Recorded ibuprofen 800 mg tablet 800 mg PO TID PRN pain #90 tabs 12/08/18 albuterol sulfate 90 mcg/actuation 2 puff inhalation Q6H PRN 03/09/19 aerosol inhaler (Proventil HFA) shortness of breath or wheezing #8 grams ondansetron HCl 4 mg tablet 4 mg PO Q8H PRN #10 tabs 06/11/20 (Zofran) amoxicillin 875 mg-potassium 1 tab PO BID #12 tabs 10/14/22 clavulanate 125 mg tablet Allergies Allergy/AdvReac Type Severity Reaction Status Date / Time No Known Allergies Allergy Unverified 10/14/22 16:14 General Stated Complaint: AnimalBite JACEY: 4 Review of Systems Narrative: 6 systems reviewed and unremarkable except what is marked below. Constitutional Constitutional: Denies weakness Musculoskeletal Musculoskeletal: Denies deformity, Denies arthralgias, Denies muscle weakness, Denies numbness, Denies stiffness and Denies tingling Integumentary/Breasts Skin/Breast: Reports as per HPI, Denies erythema, Denies skin pain, Denies skin swelling and Reports wounds Neurologic Neurologic: Denies numbness, Denies tingling, Denies paresthesias and Denies weakness PFSH All Active Problems (Updated 10/14/22 @ 17:47 by Akash Banks NP) Foreign body of right eye (Acute) Dog bite of right hand (Acute) Laceration of hand (Acute) High ankle sprain of right lower extremity (Acute 10/29/18) Medical History (Updated 10/14/22 @ 17:47 by Akash Banks NP) Narcotic abuse in remission Surgical History No significant past surgical history Social History Smoking/Tobacco Use Status: Current every day Tobacco Type: cigarettes Smoking risk assessment performed?: Yes Alcohol Intake: never Drug use: Occasionally Substance use type: marijuana Do you feel safe at home: Yes Do you feel safe in your relationship?: Yes Exam Const General: cooperative and no acute distress Orientation: alert, awake and oriented x3 Limitations: mental status not altered Resp Effort & Inspection: normal respiratory effort and able to speak in complete sentences Cardio Rate: regular rate Rhythm: regular rhythm Pulses: normal peripheral pulses Neuro General: patient alert, patient awake, patient oriented x3, gait normal, tone normal, moves all extremities, normal light touch, pain and propioception and no focal motor deficits Motor: no movement abnormalities noted Sensory Exam: no sensory deficits noted Extrem General: full ROM, capillary refill normal and normal exam except as noted Right upper extremity: wrist Details: normal ROM and laceration wrist Details: actively bleeding, involving subcutaneous tissue, with motor nerve function intact, with sensation intact, with flexor tendon function intact and with extensor tendon function intact; no tenderness and hand Details: normal capillary refill, neuromotor exam normal, neurosensory exam normal, tendon exam normal, tenderness Location: of the palm Location: at the thenar eminence, vascular exam Details: radial pulse present and normal capillary refill, normal ROM of fingers and laceration palm palmar aspect Details: irregular, flap, actively bleeding, involving subcutaneous tissue, with motor nerve function intact and with sensation intact Course Vital Signs Vital signs: Vital Signs Temperature 37.1 C 10/14/22 16:15 Pulse 77 10/14/22 16:15 Respiratory Rate 18 10/14/22 16:15 Blood Pressure 140/87 10/14/22 16:15 Pulse Oximetry 98 10/14/22 16:15 Temperature 37.1 C 10/14/22 16:15 Temperature Source Temporal Artery Scan 10/14/22 16:15 Pulse 77 10/14/22 16:15 Respiratory Rate 18 10/14/22 16:15 Respiratory Effort Normal, Non-Labored 10/14/22 16:13 Blood Pressure 140/87 10/14/22 16:15 Pulse Oximetry 98 10/14/22 16:15 Oxygen Delivery Method Room Air 10/14/22 16:15 Oxygen Flow Rate 0 10/14/22 16:15 Procedures Laceration Laceration 1: Site: hand Side (If applicable): right Size (cm): 4.5 Description: flap, irregular and clean Depth: simple, single layer Local Anesthetic: Lidocaine 1% and with Epi Amount of anesthesia used (mL): 4 Pre-repair: wound explored, irrigated extensively and deep structures intact Skin layer closed with: other (prolene) Size (cm): 3-0 Number of sutures: 4 Technique: simple, interrupted Laceration 2: Site: upper extremity Side (If applicable): right Size (cm): 3 Description: linear Local Anesthetic: Lidocaine 1% and with Epi Amount of anesthesia used (mL): 3 Pre-repair: wound explored, irrigated extensively and deep structures intact Skin layer closed with: other (prolene) Size (cm): 3-0 Number of sutures: 2 Technique: simple, interrupted
[2022-10-14 17:53] VITALS: PULSE 75; O2SAT 95
[2022-10-14] MEDS: Amox. 875/Clav. 125, 2 TABS/BTL 1 TAB PO (17:55)
== END 2022-10-14 17:53 | disposition home or self-care (01) ==
PROVIDERS: Emergency Provider Nurse Practitioner Family; PCP Family Medicine
DX: S61.451A Open bite of right hand, initial encounter (principal); W54.0XXA Bitten by dog, initial encounter
CPT/HCPCS: 12002; 90471

== ENCOUNTER 2022-10-20 09:35 | Emergency (ER) | payer MEDICAID, SELFPAY ==
[2022-10-20 09:47] VITALS: BP 126/78; PULSE 86; RESP 18; TEMP 37.1; O2SAT 97
--- NOTE | 2022-10-20 10:47 | ED.GENADUL_ITS ---
Discharge Plan Disposition Patient Disposition: Home Discharge Details Clinical Impression: Dog bite of right hand, Dehiscence of wound Primary Care Provider: Juan Diego Pop ED Provider: Dharmesh Lobo Home Meds and New Rx's Prescriptions: New amoxicillin-pot clavulanate 875-125 mg tablet 1 tab PO BID 4 Days Qty: 8 0RF bacitracin 500 unit/gram ointment 1 applic topical TID 7 Days Qty: 2044.8 0RF Continued ibuprofen 800 mg tablet 800 mg PO TID PRN (Reason: pain) Qty: 90 2RF Patient Comments: not taking pantoprazole 20 mg tablet,delayed release (DR/EC) 20 mg PO DAILY Patient Comments: not taking buprenorphine-naloxone [Suboxone] 2-0.5 mg film 1 film buccal DAILY Patient Comments: not taking Rx Instructions: place 1 strip/tab under (each) side of tongue triamcinolone acetonide 0.1 % cream 1 applic topical BID nicotine (polacrilex) 2 mg gum 2 mg buccal Q1H Patient Comments: not taking nicotine 21 mg/24 hr patch 24 hour 1 patch transdermal Q24H Patient Comments: not taking buprenorphine-naloxone [Suboxone] 1 EACH film 1 film PO DAILY MDD 8 mg ondansetron HCl [Zofran] 4 mg tablet 4 mg PO Q8H PRNQty: 10 0RF Patient Comments: not taking amoxicillin-pot clavulanate 875-125 mg tablet 1 tab PO BID Qty: 12 0RF albuterol sulfate [Proventil HFA] 90 mcg/actuation HFA aerosol inhaler 2 puff IH Q6H PRN (Reason: shortness of breath or wheezing) Qty: 8 0RF Patient Comments: not taking Discharge Instructions Instructions: Animal Bite (ED) Additional Instructions: You were seen in the emergency department for sutures falling out. The sutures were already falling out and we removed the rest of them for you. We have reapplied some Steri-Strips to the area. We gave you a few extra days of antibiotics though it does not look like you are developing any significant infection at this time. Follow-up with your primary care doctor. Keep the area clean and dry. Remove the bandage tomorrow and apply bacitracin antibiotic ointment to the area and a dry sterile dressing daily. Return for any worsening redness, pain, or any loss of function or pain to your fingers. Referrals: Juan Diego Pop [Primary Care Provider] - 2 weeks Medical Decision Making 47-year-old male presents with wound problem. It appears the sutures in the right palmar laceration ruptured. I removed the 4 sutures from the skin as they were not pulling together the wound anymore. It was otherwise clean and dry and there is no signs of infection and I extensively irrigated today and dried it and applied some new Steri-Strips. Had 2 sutures in the right medial wrist laceration that I removed at the patient's request and does look like he has good approximation of the wound. Clean and dry the area but no new sutures or Steri-Strips indicated. Clean bandage applied. We will give him a few more days of antibiotics out of the patient's concern for possible infection though does not look clinically infected at bedside. I have sent a prescription for bacitracin as well that he can use for dressing changes. He is agreeable with this plan. Will discharge with return precautions. Medical Records Medical records reviewed: Yes I reviewed the patient's medical records. HPI General Mode of arrival: ambulatory . Date/Time Provider Initiated Documentation: 10/20/22 10:19 . Limitations to Documentation: no limitations . Information obtained by: patient . HPI Narrative: 47-year-old gentleman presents with dehiscence of right hand wound. Got bit by a dog about 6 days ago and had loose closure with sutures here in the emergency department and started on antibiotics and sent home. Says that he must of slept funny last night and the sutures fell out on the palmar laceration on the left hand. Says he also has some pain in the right lateral laceration on the wrist. Says he has no fevers or chills. No trouble moving his hand. He was a little worried the one on the right wrist was getting more infected just because it looks more red. Says that had 1 episode of draining a few days ago but has since not had any purulent drainage. Related Data Home Medications Medication Instructions Recorded Confirmed buprenorphine 8 mg-naloxone 2 mg 1 film PO DAILY 04/30/15 10/20/22 sublingual film (Suboxone) ibuprofen 800 mg tablet 800 mg PO TID PRN pain #90 tabs 12/08/18 10/20/22 albuterol sulfate 90 mcg/actuation 2 puff inhalation Q6H PRN 03/09/19 10/20/22 aerosol inhaler (Proventil HFA) shortness of breath or wheezing #8 grams ondansetron HCl 4 mg tablet 4 mg PO Q8H PRN #10 tabs 06/11/20 10/20/22 (Zofran) buprenorphine 2 mg-naloxone 0.5 mg 1 film buccal DAILY 06/13/20 10/20/22 sublingual film (Suboxone) nicotine (polacrilex) 2 mg gum 2 mg buccal Q1H 06/13/20 10/20/22 nicotine 21 mg/24 hr daily 1 patch transdermal Q24H 06/13/20 10/20/22 transdermal patch pantoprazole 20 mg tablet,delayed 20 mg PO DAILY 06/13/20 10/20/22 release triamcinolone acetonide 0.1 % 1 applic topical BID 06/13/20 10/20/22 topical cream amoxicillin 875 mg-potassium 1 tab PO BID #12 tabs 10/14/22 10/20/22 clavulanate 125 mg tablet amoxicillin 875 mg-potassium 1 tab PO BID 4 days #8 tabs 10/20/22 clavulanate 125 mg tablet bacitracin 500 unit/gram topical 1 applic topical TID 7 days 10/20/22 ointment #2,044.8 grams Previous Rx's Medication Instructions Recorded ibuprofen 800 mg tablet 800 mg PO TID PRN pain #90 tabs 12/08/18 albuterol sulfate 90 mcg/actuation 2 puff inhalation Q6H PRN 03/09/19 aerosol inhaler (Proventil HFA) shortness of breath or wheezing #8 grams ondansetron HCl 4 mg tablet 4 mg PO Q8H PRN #10 tabs 06/11/20 (Zofran) amoxicillin 875 mg-potassium 1 tab PO BID #12 tabs 10/14/22 clavulanate 125 mg tablet amoxicillin 875 mg-potassium 1 tab PO BID 4 days #8 tabs 10/20/22 clavulanate 125 mg tablet bacitracin 500 unit/gram topical 1 applic topical TID 7 days 10/20/22 ointment #2,044.8 grams Allergies Allergy/AdvReac Type Severity Reaction Status Date / Time No Known Allergies Allergy Unverified 10/14/22 16:14 General Stated Complaint: Recheck JACEY: 3 Review of Systems Constitutional Constitutional: Denies chills, Denies fever(s) and Denies headache(s) Eyes Eyes: Denies change in vision ENT Ears, Nose, Mouth, and Throat: Denies headache(s) and Denies odynophagia Cardiovascular Cardiovascular: Denies chest pain and Denies dyspnea Respiratory Respiratory: Denies dyspnea Gastrointestinal Gastrointestinal: Denies abdominal pain, Denies diarrhea, Denies nausea, Denies odynophagia and Denies vomiting Genitourinary Genitourinary: Denies dysuria Musculoskeletal Musculoskeletal: Denies myalgias Neurologic Neurologic: Denies behavioral changes and Denies headache(s) Psychiatric Psychiatric: Denies behavioral changes Endocrine Endocrine: Denies heat intolerance Hematologic/Lymphatic Hematologic/Lymphatic: Denies lymphadenopathy PFSH All Active Problems Foreign body of right eye (Acute) Dog bite of right hand (Acute) Laceration of hand (Acute) Dehiscence of wound (Acute) High ankle sprain of right lower extremity (Acute 10/29/18) Medical History Narcotic abuse in remission Surgical History No significant past surgical history Social History Smoking/Tobacco Use Status: Current every day Tobacco Type: cigarettes Smoking risk assessment performed?: Yes Alcohol Intake: never Drug use: Occasionally Substance use type: marijuana Do you feel safe at home: Yes Do you feel safe in your relationship?: Yes Exam Const General: cooperative Nutritional Appearance: average body habitus Orientation: alert, awake and oriented x3 HENMT Head: normal to inspection Ears: external ears normal Mouth: moist mucous membranes Eyes Pupils: PERRL EOM: EOM intact bilaterally and No nystagmus Neck Neck: full ROM and no tracheal deviation Chest Chest: normal inspection of the chest Resp Auscultation: clear to auscultation bilaterally Cardio Rate: regular rate Rhythm: regular rhythm GI Inspection: normal to inspection Palpation: soft, no guarding, not rigid and nontender Back/Spine/Pelvis Back: No no CVA tenderness Thoracic/Lumbar Spine: thoracic and lumbar spine normal to inspection Skin General skin exam: no rashes or lesions noted Neuro General: patient alert, patient awake and patient oriented x3 Cranial Nerves: CN's II-XI intact bilaterally, PERRL and no nystagmus Cognition: normal cognition Motor: muscle tone normal throughout and strength 5/5 throughout Sensory Exam: no sensory deficits noted Extrem General: normal to inspection Other: Some dehiscence of the right hand wound no surrounding redness or drainage. I removed for sutures at bedside and applied some Steri-Strips after irrigation. Has 2 sutures in the right medial wrist laceration that I removed at the patient's request. Small amount of surrounding redness but no drainage and no streaking up the arm. No fluctuance. Normal Course Vital Signs Vital signs: Vital Signs Temperature 37.1 C 10/20/22 09:47 Pulse 86 10/20/22 09:47 Respiratory Rate 18 10/20/22 09:47 Blood Pressure 126/78 10/20/22 09:47 Pulse Oximetry 97 10/20/22 09:47 Temperature 37.1 C 10/20/22 09:47 Temperature Source Oral 10/20/22 09:47 Pulse 86 10/20/22 09:47 Respiratory Rate 18 10/20/22 09:47 Respiratory Effort Normal, Non-Labored 10/20/22 09:50 Blood Pressure 126/78 10/20/22 09:47 Blood Pressure Position Sitting 10/20/22 09:47 Pulse Oximetry 97 10/20/22 09:47 Oxygen Delivery Method Room Air 10/20/22 09:47 Oxygen Flow Rate 0 10/20/22 09:47 Pain Level 6 10/20/22 09:47 Procedures Laceration right palm: Site: other (right palm) Size (cm): 3 Description: linear and clean Depth: simple, single layer Pre-repair: wound explored, irrigated extensively and deep structures intact Technique: other (removed sutures and applied steri strips. )
[2022-10-20 10:56] VITALS: BP 130/80; PULSE 80; RESP 18; TEMP 36.8; O2SAT 99
== END 2022-10-20 10:53 | disposition home or self-care (01) ==
PROVIDERS: Emergency Provider Student in an Organized Health Care Education/Training Program; PCP Family Medicine
DX: T81.33XA Disruption of traumatic injury wound repair, initial encounter (principal); S61.451A Open bite of right hand, initial encounter; W54.0XXA Bitten by dog, initial encounter
CPT/HCPCS: 99283

== ENCOUNTER 2023-01-19 20:52 | Outpatient (REF) | payer MEDICAID, SELFPAY ==
[2023-01-19 19:35] LABS: Hemoglobin A1C 5.8 % (<5.7)
[2023-01-19 19:42] LABS: Calculated LDL 143 mg/dL (<100); Cholesterol 216 mg/dL (<200); HDL Cholesterol 43 mg/dL (40-60); Triglyceride 152 mg/dL (<150)
== END 2023-01-19 20:53 | disposition home or self-care (01) ==
LOC: NCHCN 20:52
PROVIDERS: PCP Family Medicine; Visit Provider Family Medicine
DX: R73.03 Prediabetes (principal); E78.5 Hyperlipidemia, unspecified
CPT/HCPCS: 80061; 83036

== ENCOUNTER 2023-03-29 11:09 | Emergency (ER) | payer MEDICAID, SELFPAY ==
[2023-03-29 11:11] VITALS: BP 156/104; PULSE 96; RESP 15; TEMP 36.5; O2SAT 96
--- NOTE | 2023-03-29 11:29 | W.ED.GENAD ---
Discharge Plan Disposition Patient Disposition: Home Discharge Details Clinical Impression: Cellulitis of left leg Primary Care Provider: Juan Diego Pop ED Provider: Darryl Hampton Home Meds and New Rx's Prescriptions: No Action ibuprofen 800 mg tablet 800 mg PO TID PRN (Reason: pain) Qty: 90 2RF Patient Comments: not taking buprenorphine-naloxone [Suboxone] 1 EACH film 1 film PO DAILY MDD 8 mg Discharge Instructions Instructions: Mupirocin (On the skin), Doxycycline (By mouth), Cellulitis (ED) Additional Instructions: You were seen in the emergency department for the small lesion to your left knee that is likely cellulitis. As we discussed, please perform hot compresses 2-3 times per day with a clean soapy washcloth to the area and manually express any drainage that you can at home. 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 If the area becomes soggy you may discontinue covering it as it may be good for the wound to dry out as it improves. Please purchase [id number] Hibiclens soap and use this intermittently for decolonization from possible MRSA bacteria as we discussed. Take the doxycycline as directed, you should see significant improvement by day 3 on antibiotics, this was sent to [facility] in [place]. Should you experience any red streaking up your leg or severe pain with passive range of motion to your left knee you should return for rule out of sepsis or septic arthritis. Please be on the look out for any signs of systemic illness like fever and nausea. Please use therapeutic dosing of Tylenol (acetamenophen) & Advil (ibuprofen) in an alternating fashion as follows: Take 1000mg of Tylenol every 6 hours without missing doses- that is 4 times per day. Shelter in between the Tylenol dosings, take 400-600mg of Advil also on a 6 hour schedule, that is also 4 times per day. The daily maximum dosing of Tylenol is 4000mg, and the daily maximum dosing of Advil is 2400mg. This is safe to do for weeks. Please note that some common cold medications & prescription pain medications may contain acetamenophen and you need to read OTC drug labels and factor that in to maximum daily dosings. Referrals: Juan Diego Pop [Primary Care Provider] - Medical Decision Making This dictation utilizes [id number] dictation software and may contain unedited grammatical errors. 47 presents to ED today with a chief complaint of minor skin infection to L knee, draining serous fluid, unsure if he was bitten by a spider. Onset and characteristics include redness, drainage without large abscess, denies fever/nausea/vomiting/unilateral leg swelling. Patient has relevant history of frequent minor skin infections from abrasions. 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 Pertinent exam findings / vital signs include 0.2cm skin lesion to L knee not consistent with large absecss, no purulent drainage, no unilateral leg swelling and nontoxic vitals. Differential / pathologies of concern include insect bite, cellulitis, NOT large abscess, NOT Sepsis, possible MRSA infection with patients' history. Diagnostic studies of: -none, discussed labs, lactate and cultures if worsening after trial of antibiotics both topical and PO. Interventions of: -simple dressing here in ED. ED Course: No acute events in ED, simple uncomplicated illness without systemic symptoms. Findings not consistent with sepsis- no significant lymphadenitis or toxic vital signs, NOT consistent with septic arthritis- no passive ROM tenderness in L LE, NOT consistent with severe cellulitis at this time. Disposition of Cellulitis of Left Leg. Assessment/Plan: Discussed with the patient that he has likely a minor cellulitis but with his symptom of headache he should monitor his condition closely for signs of fever, nausea. I counseled him on performing hot compresses 2-3 times per day and expressing any purulent materials with manual expression from the wound. I counseled him on starting doxycycline to cover for MRSA infection and cellulitis which was sent to [facility]. I also counseled him on prescription mupirocin applied 2-3 times per day for wound care. I advised him to obtain [id number] Hibiclens soap and use it intermittently in the long-term to hopefully decolonize him and reduce his recurrence of skin infections. I discussed strict return criteria for any worsening lymphadenitis, any passive range of motion pain in his left knee or significant worsening especially with systemic symptoms by day 3 on antibiotics for a concern for developing sepsis if worsening occurs. Patient verbalized understanding of the plan and return to ED criteria and engaged in shared decision making. HPI General Date/Time Provider Initiated Documentation: 03/29/23 11:19. HPI Narrative: 47 year-old male presents to ED today by POV/ambulating with a chief complaint of small skin lesion to L medial anterior knee with onset noted since yesterday. Quality described as painful and red, throbbing- unsure if it is a spider bite, no radiation to fever, nausea, patient does endorse a mild headache and some mild spreading redness with serous drainage from the lesion, and mild pain with WB. Severity is described as 4-5/10. Palliating factors include took some leftover cephalexin last night. Provoking factors include nothing specific, notes that he does often get minor skin infections from minor abrasions. Events leading up to the incident/Associated Symptoms: Patient denies any possibility of IVDU, has ten years sober, and is compliant with his suboxone. Patient not anticoagulated. Related Data Home Medications Medication Instructions Recorded Confirmed buprenorphine 8 mg-naloxone 2 mg 1 film PO DAILY 04/30/15 03/29/23 sublingual film (Suboxone) ibuprofen 800 mg tablet 800 mg PO TID PRN pain #90 tabs 12/08/18 03/29/23 Previous Rx's Medication Instructions Recorded ibuprofen 800 mg tablet 800 mg PO TID PRN pain #90 tabs 12/08/18 Allergies Allergy/AdvReac Type Severity Reaction Status Date / Time No Known Allergies Allergy Unverified 03/29/23 11:13 General Stated Complaint: Cellulitis JACEY: 3 Review of Systems All systems reviewed & are unremarkable except as noted in HPI and below PFSH All Active Problems (Updated 03/29/23 @ 11:49 by STEFANO Marie) Cellulitis of left leg (Acute) Foreign body of right eye (Acute) High ankle sprain of right lower extremity (Acute 10/29/18) Medical History (Updated 03/29/23 @ 11:49 by STEFANO Marie) Narcotic abuse in remission Surgical History No significant past surgical history Social History Smoking/Tobacco Use Status: Current every day Tobacco Type: cigarettes Smoking risk assessment performed?: Yes Alcohol Intake: never Drug use: Occasionally Substance use type: marijuana Housing: apartment Do you feel safe at home: Yes Do you feel safe in your relationship?: Yes Exam Narrative Exam Narrative: GENERAL APPEARANCE: Well-nourished, non-toxic, awake and alert, atraumatic, no acute distress. SKIN: Warm, pink, dry, intact- L LE: Small 0.2 cm papular lesion at the anteromedial aspect of the patella of the left knee with mild erythema spreading out from the area 1 to 2 cm without lymphadenitis, it is draining serous fluid without purulent drainage, there is no passive range of motion tenderness in the knee he has no overt unilateral leg swelling and is neurovascularly intact to the distal left lower extremity, not consistent with significant abscess. HEAD: Normocephalic, atraumatic, normal hair distribution for gender/age. EYES: Pupils PERRLA, EOMs intact without nystagmus, normal conjunctiva, no exudates on lids/lashes. ENT: Nares patent, no circumoral cyanosis, no facial swelling NECK: Supple, trachea midline, painless cervical ROM. LUNGS/CHEST: Non-labored respirations, normal A/P diameter, symmetrical expansion, no chest wall deformity HEART (CV/PV): Regular rate and rhythm, no peripheral edema, no JVD. ABDOMEN: Soft, non-distended, no guarding. MSK: Normal ROM, no swelling/deformity to bilateral UEs or LEs, moving all extremities without weakness, no cyanosis, spine midline without tenderness, normal curvature. NEURO: Mental Status AAOx4 - alert to person, place, time, events No facial droop, no forehead involvement. Motor: No focal weakness - strength 5/5 in bilateral UEs and LEs, proximal and distal, symmetric. Sensory: sensation intact to light touch globally. Gait normal: patient ambulated without ataxia into ED room. PSYCH: euthymic, cooperative, pleasant, appropriate speech Course Vital Signs Vital signs: Vital Signs Temperature 36.5 C 03/29/23 11:11 Pulse 96 H 03/29/23 11:11 Respiratory Rate 15 03/29/23 11:11 Blood Pressure 156/104 H 03/29/23 11:11 Pulse Oximetry 96 03/29/23 11:11 Temperature 36.5 C 03/29/23 11:11 Temperature Source Temporal Artery Scan 03/29/23 11:11 Pulse 96 H 03/29/23 11:11 Respiratory Rate 15 03/29/23 11:11 Respiratory Effort Normal 03/29/23 11:13 Blood Pressure 156/104 H 03/29/23 11:11 Blood Pressure Position Sitting 03/29/23 11:11 Pulse Oximetry 96 03/29/23 11:11 Oxygen Delivery Method Room Air 03/29/23 11:11 Oxygen Flow Rate 0 03/29/23 11:11 Pain Level 8 03/29/23 11:11
[2023-03-29 11:41] VITALS: BP 126/85; PULSE 68; RESP 18; TEMP 36.7; O2SAT 97
[2023-03-29 12:00] VITALS: TEMP 36.7
== END 2023-03-29 12:07 | disposition home or self-care (01) ==
PROVIDERS: Emergency Provider Physician Assistant; PCP Family Medicine
DX: L03.116 Cellulitis of left lower limb (principal)
CPT/HCPCS: 99283

== ENCOUNTER 2023-10-11 18:19 | Inpatient (IN) | payer MEDICAID, SELFPAY ==
[2023-10-11] VITALS (10 sets, daily range): BP systolic 111–167; BP diastolic 56–142; PULSE 70–92; RESP 15–18; TEMP 36.9–37.4; O2SAT 96–99
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
--- NOTE | 2023-10-11 19:22 | DI.RAD_ITS ---
Exam(s) XR HIP RT COMPLETE AP PELVIS EXAM: XR HIP RT COMPLETE AP PELVIS CLINICAL HISTORY: R hip pain. TECHNIQUE: 2D digital imaging was performed. COMPARISON: No exams were available for comparison FINDINGS: 3 views There is a non displaced transcervical fracture of a right femoral neck . No dislocation. No joint space narrowing. Opposite-left hip appears unremarkable as does the remainder of the pelvis. IMPRESSION: Nondisplaced transcervical fracture of the right femoral neck. DATA REPOSITORY: RADIATION DOSE DELIVERED:
[2023-10-11] MEDS: Ibuprofen 400 MG TAB PO (19:43)
[2023-10-11] MEDS: Acetaminophen 500 MG TAB 1000 MG PO (19:44)
[2023-10-11] MEDS: Nicotine 21 MG/24 HR PATCH TD (19:45)
[2023-10-11 20:03] LABS: HCT 39.3 % (40.0-50.0); HGB 13.2 g/dL (13.5-17.5); MCH 31.4 pg (27.0-33.0); MCHC 33.6 % (32.0-36.0); MCV 93 fL (80-95); MPV 9.4 fL (8.0-11.0); Platelet Count 257 10^3/uL (130-400); RBC 4.21 10^6/uL (4.36-5.78); RDW 13.1 % (11.8-14.1); RDW-SD 44.7 fL; WBC 11.92 10^3/uL (4.4-10.8)
[2023-10-11 20:13] LABS: Anion Gap 8.5 mmol/L (3-11); BUN 19 mg/dL (7-18); CO2 28.5 mmol/L (21.0-32.0); CREATININE 1.1 mg/dL (0.70-1.30); Calcium 8.6 mg/dL (8.5-10.1); Chloride 102 mmol/L (98-107); Estimated GFR 83.84 (mL/min/1.73m2); Glucose 99 mg/dL (74-106); Potassium 4.1 mmol/L (3.5-5.1); Sodium 139 mmol/L (136-145)
--- NOTE | 2023-10-11 20:13 | DI.VRAD_ITS ---
PROCEDURE INFORMATION: Exam: XR Right Hip Exam date and time: 10/11/2023 7:17 PM Age: 48 years old Clinical indication: Injury or trauma; Fall; Blunt trauma (contusions or hematomas); Right; Injury date: 10/11/23; Patient HX: R hip pain TECHNIQUE: Imaging protocol: Radiologic exam of the right hip. Views: 2 or 3 views hip with pelvis when performed. COMPARISON: No relevant prior studies available. FINDINGS: Bones/joints: Transcervical right femoral neck lucency with slight cortical step-off consistent with nondisplaced transcervical right femoral neck fracture. No articular involvement. No joint dislocation. Joint spaces appear symmetric and grossly preserved. Soft tissues: Unremarkable. IMPRESSION: Findings consistent with nondisplaced transcervical right femoral neck fracture. Correlate for appropriate history/symptoms. Dictated and Authenticated by: Wayne Zhao MD. Ordering:JULIO Andrews MD
[2023-10-11 20:18] LABS: Hemoglobin A1C 6.2 % (<5.7)
[2023-10-11] MEDS: Ketorolac 15 MG/ML VIAL IVP (21:31)
--- NOTE | 2023-10-11 22:13 | NUR.NOTE ---
Home Med Suboxone Note: This home medication reports he wants to take a home dose. pt verified the count of 52 strips. Suboxone 8mg/2mg subL/Buccal film. pt reported he will call us when he is taking a dose of it. Christina Jeffrey MA witness medication count .Nursing Note:
--- NOTE | 2023-10-11 23:22 | NUR.NOTE ---
Cobbler Mckay Note. Pt self administered with his own personal suboxone, buprinorphine at this time sublingual. Nursing Note:
[2023-10-12] VITALS (19 sets, daily range): BP systolic 100–139; BP diastolic 58–100; PULSE 56–81; RESP 12–21; TEMP 35.7–37.3; O2SAT 92–100; BMI 31.8
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
[2023-10-12] MEDS: Ketorolac 15 MG/ML VIAL IVP ×2 (05:58→12:32)
[2023-10-12] MEDS: Lactated Ringers 1,000 ML 75 ML IV (05:59)
--- NOTE | 2023-10-12 06:54 | NUR.NOTE ---
JE suboxone buprinorphine. 0650am 10/12/23 Pt did take a single sublingual dose of his personal suboxone/buprinorphine. earlier in the shift he reported to me he will not use our hospital supply, stating that it gives him nausea. Nursing Note:
[2023-10-12] MEDS: Nicotine 21 MG/24 HR PATCH TD ×2 (08:09→20:24)
[2023-10-12] MEDS: Acetaminophen 500 MG TAB 1000 MG PO ×3 (08:10→20:25)
--- NOTE | 2023-10-12 08:30 | ANES.PREOP_ITS ---
General Info Date of Service Date Performed: 10/12/23 Height: 6 ft 2 in Weight: 112.491 kg Body Mass Index (BMI): 31.8 Surgical Procedure: Operation Date: 10/12/23 11:40 Proposed Procedure Side Surgeon p Hip Cannulated Fx Right Drew Flores MD Meds Allergies and Home Medications Allergies Allergy/AdvReac Type Severity Reaction Status Date / Time No Known Allergies Allergy Unverified 10/11/23 18:38 Home Medication Medication Instructions Recorded buprenorphine 8 mg-naloxone 2 mg 1 film PO BID 04/30/15 sublingual film (Suboxone) ibuprofen 800 mg tablet 800 mg PO TID PRN pain #90 tabs 12/08/18 Current Visit Medications: Current Medications Generic Name Dose Route Start Last Admin Trade Name Freq PRN Reason Stop Dose Admin Acetaminophen 1,000 mg 10/12/23 08:30 10/12/23 08:10 Acetaminophen 500 Mg Tab PO 1,000 mg TID ADDIE Administration Buprenorphine/Naloxone 1 each 10/12/23 08:30 10/12/23 08:01 Buprenorphine/Naloxone 8 Mg/2 Mg Film SL Not Given DAILY ADDIE Hydromorphone HCl 1 mg 10/11/23 21:06 Hydromorphone 2 Mg/Ml Syr IVP Q2H PRN PRN Ringer's Solution 1,000 mls @ 75 mls/hr 10/12/23 06:00 10/12/23 05:59 IV 75 mls/hr INFUSION ADDIE Administration Ketorolac Tromethamine 15 mg 10/11/23 21:06 10/12/23 05:58 Ketorolac 15 Mg/Ml Vial IVP 10/16/23 21:05 15 mg Q6H PRN PRN Administration Nicotine 21 mg 10/12/23 08:30 10/12/23 08:09 Nicotine 21 Mg/24 Hr Patch TD 21 mg DAILY ADDIE Administration Oxycodone HCl 0 mg 10/11/23 21:06 Oxycodone 5 Mg Tab PO Q3H PRN PRN Pain PFSH Active Problems Active Problems: Problem Status Onset Code Nicotine dependence F17.200 Fracture of neck of right femur S72.001A ADHD F90.9 Tarsal tunnel syndrome G57.50 Torticollis M43.6 Insomnia G47.00 Anxiety disorder F41.9 Psoriasis L40.9 Lichen planus L43.9 Opioid dependence F11.20 Dental caries K02.9 Dyspepsia R10.13 Sleep apnea G47.30 Prediabetes R73.03 Foot deformity M21.969 Folliculitis L73.9 Callus of foot L84 Foreign body of right eye T15.91XA High ankle sprain of right lower extremity 10/29/18 S93.431A Medical History Medical History Bursitis, olecranon Narcotic abuse in remission Surgical History Surgical History No significant past surgical history Tobacco Smoking/Tobacco Use Status: Current every day Tobacco Type: cigarettes Alcohol Alcohol Intake: never Substance Use Substance use: Occasionally Substance use type: marijuana Vital Signs and Lab Results Vital Signs Most Recent Vital Signs in EMR: Most Recent Vital Signs Temp Pulse Resp BP Pulse Ox 37.0 C 70 18 121/67 95 10/12/23 07:44 10/12/23 07:44 10/12/23 07:44 10/12/23 07:44 10/12/23 07:44 Lab Results 10/11/23 20:00 10/11/23 20:00 Blood Type / Crossmatch: 2 No Data to Display Complete Blood Count: 2 White Blood Count 11.92 10^3/uL (4.4-10.8) H 10/11/23 20:00 Red Blood Count 4.21 10^6/uL (4.36-5.78) L 10/11/23 20:00 Hemoglobin 13.2 g/dL (13.5-17.5) L 10/11/23 20:00 Hematocrit 39.3 % (40.0-50.0) L 10/11/23 20:00 Platelet Count 257 10^3/uL (130-400) 10/11/23 20:00 Complete Metabolic Panel: 2 Sodium 139 mmol/L (136-145) 10/11/23 20:00 Potassium 4.1 mmol/L (3.5-5.1) 10/11/23 20:00 Chloride 102 mmol/L (98-107) 10/11/23 20:00 Carbon Dioxide 28.5 mmol/L (21.0-32.0) 10/11/23 20:00 BUN 19 mg/dL (7-18) H 10/11/23 20:00 Creatinine 1.1 mg/dL (0.70-1.30) 10/11/23 20:00 Est GFR (CKD-EPI 2020) 83.84 (mL/min/1.73m2) 10/11/23 20:00 Calcium 8.6 mg/dL (8.5-10.1) 10/11/23 20:00 Glucose 99 mg/dL (74-106) 10/11/23 20:00 Hemoglobin A1c 6.2 % (<5.7) H 10/11/23 20:00 Liver Function Panel: 2 No Data to Display Coagulation Panel: 2 No Data to Display Cardiac Panel: 2 No Data to Display Arterial Blood Gas: 2 No Data to Display Venous Blood Gas: 2 No Data to Display Pancreas Panel: 2 No Data to Display Thyroid Panel: 2 No Data to Display Infectious Disease: 2 No Data to Display Blood Cultures: 2 No Data to Display Toxicology Panel: 2 No Data to Display Anesthesia Assessment and Plan Anesthesia History Personal History: No History of Anesthesia Complications Family History: No Family History of Anesthesia Complications Exercise Tolerance Exercise Tolerance: Metabolic Equivalents>4 Cardiac & Pulmonary Exam Cardiac Exam: Normal S1/S2 Heart Sounds Pulmonary Exam: Clear Bilateral Breath Sounds Implantable Cardiac Device Does patient have a Pacemaker or an ICD?: No Airway Exam Known Difficult Airway: No Mallampati Class: 1 Mouth Opening: Normal (> 3cm) Thyromental Distance: Greater than 3 cm Neck Range of Motion: Full ROM Neck Circumference: Normal Teeth Condition: Normal Dentition (lower) and Removable Dentures/Plates Upper ASA Classification ASA Score: ASA 2 Emergency Case?: No NPO Status NPO Status: NPO Clears >2 hours, Solids >8 hours Anesthesia Plan Resuscitation Status: Full Code Anesthesia Technique: Spinal Anesthesia Airway Planned: Natural Airway Monitors Used: Standard Monitors
--- NOTE | 2023-10-12 09:28 | INITIAL_ITS ---
Date of service: 10/12/23 Time of Service: 09:28 Care Management Initial Assmt Initial Assessment REASON FOR HOSPITALIZATION:: Right femoral neck fracture PREVIOUS FUNCTIONAL STATUS/SOCIAL/FAMILY SUPPORTS:: Independent at baseline, employed at [employer]. Uvaldo stays between [facility] and his camper in [place]. CURRENT FUNCTIONAL STATUS:: Uvaldo arrived post surgically with nursing on the stretcher this afternoon, he remains too groggy to engage at this time, CM following. ADVANCE DIRECTIVES:: HIPPA: Grace (Mother), Yisel (Aunt) CODE STATUS:: Full Code INSURANCE COVERAGE / FINANCIAL ISSUES:: Medicaid CURRENT HOME/COMMUNITY SERVICES/EQUIPMENT:: None PRIMARY CARE PHYSICIAN:: Juan Diego Pop POTENTIAL DISCHARGE NEEDS:: Follow up appointments. PATIENT/FAMILY EDUCATION NEEDS:: Review discharge instructions, discuss Ask Me Three. ANTICIPATED BARRIERS TO DISCHARGE:: Hip fix TRANSPORTATION:: Via private vehicle. PLAN:: Uvaldo will return home when ready per MD. He will be evaluated post surgical for mobility and monitored closely during recovery. CM following. PFSH All Active Problems Nicotine dependence (Acute) Fracture of neck of right femur (Acute) ADHD (Acute) Tarsal tunnel syndrome (Acute) Torticollis (Acute) Insomnia (Acute) Anxiety disorder (Acute) Psoriasis (Chronic) Lichen planus (Acute) Opioid dependence (Acute) Dental caries (Acute) Dyspepsia (Acute) Sleep apnea (Acute) Prediabetes (Acute) Foot deformity (Acute) Folliculitis (Acute) Callus of foot (Acute) Foreign body of right eye (Acute) High ankle sprain of right lower extremity (Acute 10/29/18) Medical History Bursitis, olecranon Narcotic abuse in remission Surgical History No significant past surgical history Social History Smoking/Tobacco Use Status: Current every day Tobacco Type: cigarettes Smoking risk assessment performed?: Yes Alcohol Intake: never Drug use: Occasionally Substance use type: marijuana Housing: other Do you feel safe at home: Yes Do you feel safe in your relationship?: Yes SDOH(Care Management) Screening Will the Patient Participate in the Screening?: Yes Do you worry about having a steady place to live?: yes In the past 12 months, have you had to go without electric, gas, oil or water in your home?: no Have you or anyone in your house had to go without enough food to eat?: no Has lack of transportation kept you from medical appointments or from doing things needed for daily living?: no Has anyone in your support network made you feel unsafe for any reason?: no Health Related Social Needs Health related social needs: housing instability, housed, with risk of homelessness(Z59.201)
--- NOTE | 2023-10-12 11:55 | DI.RAD_ITS ---
Exam(s) XR HIP RT IN OR EXAM: XR HIP RT IN OR CLINICAL HISTORY: right hip fracture. TECHNIQUE: 2D digital imaging was performed. COMPARISON: No exams were available for comparison FINDINGS: Prostate be provided during ORIF of right hip fracture. See procedure report for details. Total fluoroscopy time 56 seconds IMPRESSION: Radiation exposure index/cumulative dose: trenton Carvalho= 12.452 mGy DATA REPOSITORY: RADIATION DOSE DELIVERED:
--- NOTE | 2023-10-12 12:12 | W.PM.OP ---
Date of service: 10/12/23 Time of Service: 11:30 Operative Note Operative Note DATE OF PROCEDURE: 10/12/23 PRE-OP DIAGNOSIS: Right Transcervical Femoral Neck Fracture POST-OP DIAGNOSIS: same PROCEDURE: Close reduction and percutaneous fixation of right femoral neck fracture SURGEON: Drew Flores ANESTHESIA TYPE: General LMA/ETT Refer to Anesthesia Record ESTIMATED BLOOD LOSS: 10 PATHOLOGY: none sent COMPLICATIONS: None Patient was transported to: PACU Patient's condition: stable Implants: Synthes 7.3mm cannulated screws (x3) Indications: Uvaldo is a 48 year old male who presented to the Emergency Department after a fall. X-rays confirmed the diagnosis of a femoral neck fracture of the proximal femur without significant displacement or comminution. I reviewed the possible treatment options and given the fracture of the femur, I recommended operative fixation. I discussed the technical details of the surgery. I reviewed the risks such as bleeding, infection, pain, stiffness, malunion, nonunion, hardware prominence, hardware faiilure, malrotation, avascular necrosis, blood clot. Despite these risks, he agreed to proceed. Findings: A femoral neck fracture was minimally displaced, gently reduced with internal rotation, and thus secured with 3 7.3mm cannulated screws in a percutaneous fashion. Procedure Description: Uavldo was taken back to the operating room. A general anesthetic was then administered. The feet were wrapped with cast padding and Coban and then placed into the boot liners and then into the boots. Care was taken to protect the skin and make sure the heels were fully down and the boots were stable. The patient was then positioned onto the HANA table. Both legs were held in a neutral position. SCDs were applied. The patient was then slid down onto a perineal post. The arm of the operative side was then placed across the chest and secured. The nonoperative leg was scissored. A gentle reduction was then performed with internal rotation and x-ray was utilized to confirm no significant displacement of the femoral neck on AP and lateral. Prophylactic antibiotics in the form of Cefazolin were administered. 1g of Tranxemic Acid was given intravenously within 30 minutes of incision. The right leg was then prepped with Chloraprep and draped in a standard fashion with shower-curtain type drape with Iodine impregnated skin protection. A timeout to confirm correct identity, side and site, procedure, allergies, anesthesia, and medical concerns was performed. Using fluoroscopy, the starting point was marked over the lateral hip. The first pin was placed into a posterior?inferior position to form an inverted triangle. This was made sure to start proximal of the lesser trochanter. It was advanced into the femoral head and confirmed to be in a good position both on the AP and the lateral. 2 additional pins from the 7.3 mm cannulated system replaced, both superior, 1 anterior 1 posterior. These were once again confirmed to be in good position on fluoroscopy. They were advanced to the appropriate position in the path of the pin was cut with a knife. The pin length was measured and the lateral cortex was opened with a drill. The appropriate sized screws were then placed loosely. Once all 3 were in position I then proceeded circumferentially tightening each screw by 1 or 2 turns into each were tightened. These had excellent fixation. There is no screw penetration in the head and no penetration within the lateral cortex. AP and lateral x-rays were once again obtained to confirm appropriate positioning throughout both planes and without displacement nor fracture propagation. The wounds were thoroughly irrigated. A cocktail consisting of 123mg of Ropivacaine, 0.25mg of Epinephrine, 0.04mg of Clonidine, and 15mg of Ketorolac, diluted to 50cc was injected throughout the wounds both deep and superficially. The deep fascia of the proximal two wounds was reapproximated with a 0 Vicryl. The deep tisses were closed with a 2-0 Vicryl and the skin was closed with a running subcuticular Monocryl. The wounds were dressed with a Mepilex silver dressing. At the end of the case, all counts were correct. Uvaldo tolerated the procedure well without known complication and was taken to the PACU for recovery. Physical therapy will start post-operatively, weigh-bearing as tolerated with assistive devices. Anticoagulation will start within 12-24 hours. 3 doses of post-operative antibitiocis for prophylaxis will be administered.
[2023-10-12] MEDS: diazePAM 5 MG TAB PO (13:18)
--- NOTE | 2023-10-12 14:19 | W.ANESPOSTOP ---
Postoperative Evaluation Date, Time and Location Date Performed: 10/12/23 Time Performed: 14:19 Patient Location: PACU Vital Signs Most Recent Imported Vital Signs: Most Recent Vital Signs Temp Pulse Resp BP Pulse Ox 36.5 C 57 L 14 109/67 100 10/12/23 14:09 10/12/23 14:09 10/12/23 14:09 10/12/23 14:09 10/12/23 14:09 Pain Score Most Recent Pain Score: Most Recent Pain Score Pain Level [Right Hip] 5 10/12/23 09:51 Pain Level [Hip] 10 10/11/23 18:27 Pain Level 7 10/12/23 14:09 Assessment Mental Status: Arousable with meaningful communication Airway and Respiratory Function: Patent airway with normal (patient baseline) respiratory exam Cardiovascular Function: Hemodynamically Stable Hydration Status: Adequately Hydrated Nausea & Vomiting: No Nausea or Vomiting Pain: Pain is tolerable per patient Peripheral Nerve Block: Patient did not receive a nerve block Postoperative Comments:: Will continue to use continuous pulse oximetry on the floor
[2023-10-12] MEDS: ceFAZolin 1 GM/50 ML BAG IVPB ×2 (15:57→23:32)
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
--- NOTE | 2023-10-12 17:00 | NUR.NOTE ---
Nursing Note: back to room from OR, remains a little drowsy, SAT's 94% on RA. Working with PT at this time, tolerating well, pt states that pain is achy but tolerable. denies complaints at this time.
[2023-10-13 03:47] VITALS: BP 117/76; PULSE 66; RESP 18; TEMP 35.8; O2SAT 94
--- NOTE | 2023-10-13 05:35 | W.PM.DS.N ---
Date of service: 10/13/23 Time of Service: 07:20 DS: Diagnosis Discharge Diagnosis (1) Fracture of neck of right femur: Status: Acute (2) Opioid dependence: Status: Acute (3) Prediabetes: Status: Acute (4) Nicotine dependence: Status: Acute Discharge Plan Disposition Patient Disposition: Home Condition: Improving Discharge Details Reason For Visit: right femoral neck fracture Admit Date/Time: 10/11/23 19:43 Admit Provider: Drew Flores Attending Provider: Drew Flores [facility]: Patient was admitted to the medical/surgical floor from the emergency department for management of the transcervical femoral neck fracture. He underwent closed reduction and percutaneous screw fixation on hospital day #2. The surgery was tolerated well without any notable medical, surgical, or anesthetic complications. Mobilization began postoperatively. He was voiding spontaneously. Vitals were stable. Physical therapy worked with the patient and was cleared for discharge home. No acute medical issues. Pain was controlled on oral regimen. Home Meds and New Rx's Prescriptions: New acetaminophen 500 mg tablet 1,000 mg PO Q8H PRN (Reason: pain) Qty: 90 3RF ibuprofen 600 mg tablet 600 mg PO TID PRN (Reason: pain) Qty: 90 3RF aspirin 81 mg tablet,delayed release (DR/EC) 81 mg PO BID Qty: 60 0RF Continued buprenorphine-naloxone [Suboxone] 1 EACH film 1 film PO BID MDD 8 mg Discontinued ibuprofen 800 mg tablet 800 mg PO TID PRN (Reason: pain) Qty: 90 2RF Patient Comments: not taking Discharge Instructions Additional Instructions: Hip Discharge Instructions Activity: You should try to take short walks a few times a day with the use of an assistive device, crutches or walker. You have no restrictions on movement or positioning, but do not try to force what you do. You will find some stiffness and weakness with hip flexion (lifting your knee). Do not try to strengthen this too early, continue to practice walking and stairs and this will come. Do not try to walk for too long or stand on the leg for too long a period of time. I recommend always using crutches or a walker until cleared otherwise. - Outpatient physical therapy can be helpful to help return you to a normal gait and improve your flexibility and strength. This can start around 2 weeks. For some patients, it?s not necessary. Usually this is determined at the time of discharge or at the first post-operative visit. Dressing: Keep the surgical dressing in place for at least one week. After the first week it may be removed and replace with light gauze and tape or Band-Aids. It may get wet after 3 days but avoid soaking the dressing. If it gets wet, just lightly pat dry. Medications: - You should take Tylenol and an anti-inflammatory ibuprofen as your primary pain control medications. - I have not called in any stronger narcotic pain medication, per your request and how you are doing in the hospital. However, it may be necessary. Feel free to take Dr. Flores to discuss this. - You will be taking Aspirin 81mg twice a day for DVT prevention unless instructed otherwise. - If you have constipation you should take Colace or Miralax (both [id number]). It takes most people 3-4 days to have a bowel movement. Follow-up: 2 weeks If you have any acute concerns or questions, please do not hesitate to contact the office at [phone]. You may contact Dr. Flores with any questions after hours through the hospital at [phone] or on his cell phone at [phone]. Activity:: Activity as Tolerated Equipment/Supplies:: Crutches Diet:: As Tolerated Discharge Orders Discharge Orders: Discharge Order (Routine); Ordered 10/13/23 Ordered By: Drew Flores DS: Summary Time Spent with Patient providing and/or coordinating discharge services: Less than 30 minutes Status at Discharge Functional status at discharge: uses cane/walker Overall status at discharge: patient is progressing back to baseline Mental Status: mental status grossly normal Speech and Movement: speech and movement normal Mood: congruent mood Affect: normal affect Quality:SDOH Health Related Social Needs: Health related social needs risk of homeless Referrals and interventions: pt reports he has an address in [place] but also staying in his camper in [place]. he works with [employer] a division of [employer]. Exam Narrative Exam Narrative: Resting in the bed. No acute distress. Alert and x 3. Dressing to the right hip is bloodstained. This dressing was replaced. There is no signs of infection or active drainage. There is some surrounding ecchymosis. No significant pain with hip internal and external rotation. He is able to ambulate yesterday. Sensation intact light touch over the deep and superficial peroneal nerve and tibial nerve. Active ankle dorsiflexion, plantarflexion, EHL, FHL. Psych Mental Status: mental status grossly normal Speech and Movement: speech and movement normal Mood: congruent mood Affect: normal affect DS: Data Vitals/I&O Vitals and I&O: Vital Signs Temperature 35.8 C L 10/13/23 03:47 Temperature Source Tympanic 10/13/23 03:47 Pulse 66 10/13/23 03:47 Pulse Rhythm Regular 10/12/23 20:25 Respiratory Rate 18 10/13/23 03:47 Respiratory Effort Normal, Non-Labored 10/12/23 20:25 Respiratory Depth Normal 10/12/23 20:25 Respiratory Pattern Normal 10/12/23 20:25 Blood Pressure 117/76 10/13/23 03:47 Blood Pressure Mean 87 10/11/23 20:45 Blood Pressure Position Sitting 10/11/23 18:15 Pulse Oximetry 94 10/13/23 03:47 Respiratory End-tidal CO2 44 10/12/23 14:26 Oxygen Delivery Method Room Air 10/13/23 03:47 Oxygen Flow Rate 0 10/13/23 03:47 Pain Level 0 10/13/23 03:47 Comment 10 right hip pain. 99.0 F 10/11/23 21:01 Intake & Output 10/12/23 10/12/23 10/13/23 11:59 23:59 11:59 Intake Total 750 / 750 50 / 50 Output Total 650 / 660 Balance -650 / 90 740 / 90 50 / 50 Weight 112.491 kg Intake: IV 750 / 750 50 / 50 Output: Urine 650 / 650 Estimated Blood Loss Other: Urine Color Yellow Urine Appearance Clear Comment been up to the bathroom Emesis Description None Voiding Methods Urinal Toilet Toilet PFSH All Active Problems Nicotine dependence (Acute) Fracture of neck of right femur (Acute) ADHD (Acute) Tarsal tunnel syndrome (Acute) Torticollis (Acute) Insomnia (Acute) Anxiety disorder (Acute) Psoriasis (Chronic) Lichen planus (Acute) Opioid dependence (Acute) Dental caries (Acute) Dyspepsia (Acute) Sleep apnea (Acute) Prediabetes (Acute) Foot deformity (Acute) Folliculitis (Acute) Callus of foot (Acute) Foreign body of right eye (Acute) High ankle sprain of right lower extremity (Acute 10/29/18) Medical History Bursitis, olecranon Narcotic abuse in remission Surgical History No significant past surgical history Social History Smoking/Tobacco Use Status: Current every day Tobacco Type: cigarettes Smoking risk assessment performed?: Yes Alcohol Intake: never Drug use: Occasionally Substance use type: marijuana Housing: other Do you feel safe at home: Yes Do you feel safe in your relationship?: Yes Time Spent with Patient Time Spent with Patient: <45 minutes Time was spent: obtaining and/or reviewing separately otained hiistory, referring, communicating with other health healthcare advisory services manager, counseling the patient and care coordination
--- NOTE | 2023-10-13 08:28 | PTTR_ITS ---
PT Notes Visit Reasons: right femoral neck fracture Date: 10/13/2023 PRECAUTIONS: Fall. Standard. WBAT on the R LE with AD per / Mark.. SUBJECTIVE: Pt in bed when approached for therapy this morning, pt agreed to participating with therapy session. OBJECTIVE: ? PAIN: surgical pain ? Therapeutic Activities 76918: Direct one-on-one instruction in dynamic activities to improve functional performance. ?? BED MOBILITY/TRANSFERS? Rolling L/R: independent Supine-sit: ? ?independent? Sit-supine: ? ?independent? Sit-stand: ? ?independent ? Stand-sit: ?? independent? Bed-Chair:? ? independent? Chair-bed: independent Provided skilled cues and instruction on performance and technique throughout. Gait Training 64066: Direct one-on-one instruction and skilled instruction in: Employing an assistive device Modified weight-bearing status Movement sequencing Turning and movement with proper form Provided verbal cues for equipment management and technique Provided instruction in gait pattern Patient education regarding pacing and breathing techniques to maximize activity tolerance? GAIT? Assistive Device: ??bilateral Crutch ? Weight bearing: WBAT Assist: ?Supervision? Distance:?? 100'? Deviation: ? Antalgic gait? STAIRS:? ? 6x4, 4x6 supervision? ? Therapeutic Exercises 83906: Direct one-on-one instruction in therapeutic exercises to develop strength, endurance, range of motion and flexibility. Exercises Provided skilled instruction in proper exercise performance Provided skilled manual cues to facilitate proper muscle recruitment and/or form: Access Code: [email or web address] URL: [email or web address]/ Date: 10/12/2023 Prepared by: Jordyn Jay Exercises - Supine Quad Set - 1 x daily - 7 x weekly - 1 sets - 10 reps - 5 hold - Supine Heel Slide - 1 x daily - 7 x weekly - 1 sets - 10 reps - 5 hold - Supine Ankle Pumps - 1 x daily - 7 x weekly - 1 sets - 10 reps - 5 hold - Small Range Straight Leg Raise - 1 x daily - 7 x weekly - 1 sets - 10 reps - 5 hold - Seated March - 1 x daily - 7 x weekly - 1 sets - 10 reps - 5 hold ? ASSESSMENT:?Pt initially doing NWB on the RLE, pt education with WBAT during crutch walking and proper sequencing during stair negotiation, pt able to execute stair negotiation with proper sequencing after demonstration, pt issued DME and was measured for proper AD height for efficient use of crutches PLAN: Possible DC, Home with outpatient PT. TREATMENT CODE/TIME: 43445p9 15mins (8:15-8:30am)
[2023-10-13 09:17] VITALS: BP 123/79; PULSE 84; RESP 18; TEMP 37.5; O2SAT 96
[2023-10-13] MEDS: Acetaminophen 500 MG TAB 1000 MG PO (09:22)
[2023-10-13] MEDS: Dexamethasone 4 MG TAB PO (09:23)
[2023-10-13] MEDS: Normal Saline Flush 10 ML SYR IVP ×2 (09:23→09:54)
[2023-10-13] MEDS: Nicotine 21 MG/24 HR PATCH TD (09:23)
[2023-10-13] MEDS: ceFAZolin 1 GM/50 ML BAG IVPB (09:24)
--- NOTE | 2023-10-13 11:52 | NUR.NOTE ---
Nursing Note: Pt DC to home with friend via private vehicle, escorted to main entrance via WC with this nurse, pt has all personal belongings and has no further questions regarding DC instructions.
--- NOTE | 2023-10-13 13:32 | CMDISCH_ITS ---
Date of service: 10/13/23 Time of Service: 13:32 LACE Index Scoring Tool Questions: Length of Stay (in days): 2 Was the patient admitted via the E.D.?: Yes E.D. Visits: 0 Answers: Total Score: 5 Risk of Readmission: Low Risk Care Management Discharge Plan Reason for Hospitalization: Right femoral neck fracture Discharge Plan: Uvaldo will return home when ready per MD, he will follow up with his PCP as well as outpatient PT. He will transport via private vehicle. Patient/Family Education Needs: Review discharge instructions, discuss Ask Me Three self care needs upon discharge. SDOH Health Related Social Needs: Health related social needs risk of homeless Referrals and interventions: Uvaldo reports having an address in [facility] with family, but also stays in his camper in [place]. He works with [employer]; a division of [employer].
== END 2023-10-13 11:15 | disposition home or self-care (01) | DRG 481 ==
LOC: ER 19:37 → MS 20:54
PROVIDERS: Admitting Provider Student in an Organized Health Care Education/Training Program; Emergency Provider Physician Assistant; PCP Family Medicine; Visit Provider Student in an Organized Health Care Education/Training Program
PROC: 0QS634Z Reposition Right Upper Femur with Internal Fixation Device, Percutaneous Approach (ICD-10-PCS; CPT 27235; principal; 2023-10-12 11:30)
DX: S72.031A Displaced midcervical fracture of right femur, initial encounter for closed fracture (principal); F11.20 Opioid dependence, uncomplicated; R73.03 Prediabetes; F17.210 Nicotine dependence, cigarettes, uncomplicated; F90.9 Attention-deficit hyperactivity disorder, unspecified type; G47.00 Insomnia, unspecified; G47.30 Sleep apnea, unspecified; F41.9 Anxiety disorder, unspecified; W01.0XXA Fall on same level from slipping, tripping and stumbling without subsequent striking against object, initial encounter; L40.9 Psoriasis, unspecified; K02.9 Dental caries, unspecified
CPT/HCPCS: 27235; 80048; 85027; 97162; 97530; 99285; 73501; 73502; 83036; J0690; J1100; J1885; J2250; J2371; J2401; J2405; J2704; J8540

== ENCOUNTER 2023-10-28 14:36 | Outpatient (CLI) | payer MEDICAID, SELFPAY ==
--- NOTE | 2023-10-28 13:15 | DI.RAD_ITS ---
Exam(s) XR HIP RT AP LAT ONLY EXAM: XR HIP RT AP LAT ONLY CLINICAL HISTORY: F/U FRACTURE. TECHNIQUE: 2D digital imaging was performed. Two views COMPARISON: XA XR HIP RT IN OR from 10/12/2023 FINDINGS: BONES: No acute fracture is present. No bony destructive lesion is seen. Three partially threaded scr ews are again noted in the right femoral neck for fracture fixation. There is has been no change in fracture or hardware alignment. JOINTS: No dislocation present. Hip joint spaces are maintained. SOFT TISSUE: Normal. IMPRESSION: Stable fracture alignment. DATA REPOSITORY: RADIATION DOSE DELIVERED:
== END 2023-10-28 14:37 | disposition home or self-care (01) ==
LOC: DIORS 14:36
PROVIDERS: PCP Family Medicine; Visit Provider Student in an Organized Health Care Education/Training Program
DX: S72.031D Displaced midcervical fracture of right femur, subsequent encounter for closed fracture with routine healing (principal); X58.XXXD Exposure to other specified factors, subsequent encounter
CPT/HCPCS: 73502

== ENCOUNTER 2024-03-31 14:17 | Emergency (ER) | payer MEDICAID, SELFPAY ==
[2024-03-31 14:21] VITALS: BP 125/80; PULSE 94; RESP 18; TEMP 37.1; O2SAT 94
--- OUTSIDE RECORDS SUMMARY | 2024-03-31 14:59 | XMS_ITS ---
Author Organization Unknown Address [address] [place] [address] [phone] Phone Care Team Providers Care Cement Sack Breaker Name Role Phone ROMAN NARAYAN Registered Nurse Unavailable KAYLA RAY Attending Unavailable VALENCIA Alfredo [facility] Unavailable TEVIN ESCAMILLA Primary Unavailable UNLISTED PROVIDER - REQUESTED Xhandoff Un available Social History Type Status Start Date End Date Code Code Syst em Smoking History Current every day smoker 270128428 SNOMED CT Sex Male Vital Signs Vital Sign Value Unit [place] Value [place] Unit Date/Time Recent/Initial? Code Code System Body Mass Index 36.94 kg/m2 11/06/2022 10:07 Initial 47683 -5 [facility] Systolic Blood Pressure 133 mm[Hg] 11/06/2022 10:07 Initial 8480- 6 [facility] Diastolic Blood Pressure 88 mm[Hg] 11/06/2022 10:07 Initial 8462- 4 [facility] Body Surface Area 2.56 m2 11/06/2022 10:07 Initial 3140- 1 [facility] Height 185.420 0 cm 73.00 in 11/06/2022 10:07 Initial 8302- 2 [facility] O2 Saturation 100 % 2022 10:07 Initial 96442 -5 [facility] Pulse 74.0 /min 11/06/2022 10:07 Initial 8867- 4 [facility] Respiration 18 /min 11/07/19 10:07 Initial 9279- 1 [facility] Temperature 35.8 Mago 96.4 F 11/07/19 10:07 Initial 8310- 5 [facility] Weight 127.01 kg 280.00 lbs 11/06/2022 10:07 Initial 79273 -7 [facility] Medications Medication Start Date End Date Route Frequency Dose Code Code System Medication Instructions Home Meds Keflex 500MG Oral Capsule 11/06/2022 Unknown ORAL FOUR TIMES A DAY 1 CAPSULE 940296 RxNorm TAKE 1 CAPSULE ORAL FOUR TIMES A DAY Hospital Discharge Instructions Should you have any questions prior to discharge, please contact a member of your healthcare team. If you have left the hospital and have any questions, please contact your primary care physician. Reason For Referral No Data Found Allergies and Adverse Reactions Allergy Substance Reaction Severity Start Date Concern Status Co de Code System No Known Drug Allergies Active 277556128 SNOMED-CT Plan of Treatment No Data Found Encounters Encounter Diagnosis Start Date Code Code Sys tem Abscess of face 11/06/2022 [id number] SNOMED-CT Personal Care Team Section Performer Name Performer Role Active Date Inactive Da te
--- NOTE | 2024-03-31 15:10 | ED.GENADUL_ITS ---
Discharge Plan Disposition Patient Disposition: Home Condition: Stable Discharge Details Clinical Impression: Chronic nasal congestion Primary Care Provider: Juan Diego Pop ED Provider: Pablo Glaser Home Meds and New Rx's Prescriptions: New fluticasone propionate 50 mcg/actuation blister with device 1 inh inhalation BID Qty: 60 0RF guaifenesin [Mucinex] 600 mg tablet extended release 12hr 600 mg PO BID Qty: 60 0RF loratadine [Claritin] 10 mg tablet 10 mg PO DAILY Qty: 30 0RF No Action buprenorphine-naloxone [Suboxone] 1 EACH film 1 film PO BID MDD 8 mg acetaminophen 500 mg tablet 1,000 mg PO Q8H PRN (Reason: pain) Qty: 90 3RF ibuprofen 600 mg tablet 600 mg PO TID PRN (Reason: pain) Qty: 90 3RF aspirin 81 mg tablet,delayed release (DR/EC) 81 mg PO BID Qty: 60 0RF nicotine [Nicoderm CQ] 21 mg/24 hr patch 24 hour 1 patch transdermal DAILY Qty: 28 0RF Discharge Instructions Additional Instructions: Start medication as prescribed You can also start Afrin twice daily for 3 days only to help with your severe nasal congestion HPI General Date/Time Provider Initiated Documentation: 03/31/24 14:25 . Limitations to Documentation: no limitations . Information obtained by: patient . HPI Narrative: 48-year-old gentleman with past medical history of opiate use disorder on Jerry boxone presents for evaluation of nasal congestion. He reports that he has had daily nasal congestion and difficulty breathing out of the left side of his nose for approximately 8 months. He reports intermittently he will have green discharge. He reports that for the last 3 days he has had increased nasal pressure left-sided headache and earache. Has not had any known fever. He does not take any medications other than Motrin and Tylenol for the symptoms. Related Data Home Medications ?Medication ?Instructions ?Recorded ?Confirmed buprenorphine 8 mg-naloxone 2 mg 1 film PO BID 04/30/15 03/31/24 sublingual film (Suboxone) acetaminophen 500 mg tablet 1,000 mg (2 x 500 mg) PO Q8H PRN 10/13/23 03/31/24 pain #90 tabs aspirin 81 mg tablet,delayed 81 mg PO BID #60 tabs 10/13/23 03/31/24 release ibuprofen 600 mg tablet 600 mg PO TID PRN pain #90 tabs 10/13/23 03/31/24 nicotine 21 mg/24 hr daily 1 patch transdermal DAILY #28 ea 10/13/23 03/31/24 transdermal patch (Nicoderm CQ) fluticasone propionate 50 1 inh inhalation BID #60 ea 03/31/24 mcg/actuation blister powder for inhalation guaifenesin 600 mg tablet, 600 mg PO BID #60 tabs 03/31/24 extended release 12 hr (Mucinex) loratadine 10 mg tablet (Claritin) 10 mg PO DAILY #30 tabs 03/31/24 Previous Rx's ?Medication ?Instructions ?Recorded acetaminophen 500 mg tablet 1,000 mg (2 x 500 mg) PO Q8H PRN 10/13/23 pain #90 tabs aspirin 81 mg tablet,delayed 81 mg PO BID #60 tabs 10/13/23 release ibuprofen 600 mg tablet 600 mg PO TID PRN pain #90 tabs 10/13/23 nicotine 21 mg/24 hr daily 1 patch transdermal DAILY #28 ea 10/13/23 transdermal patch (Nicoderm CQ) fluticasone propionate 50 1 inh inhalation BID #60 ea 03/31/24 mcg/actuation blister powder for inhalation guaifenesin 600 mg tablet, 600 mg PO BID #60 tabs 03/31/24 extended release 12 hr (Mucinex) loratadine 10 mg tablet (Claritin) 10 mg PO DAILY #30 tabs 03/31/24 Allergies Allergy/AdvReac Type Severity Reaction Status Date / Time No Known Allergies Allergy Unverified 03/31/24 14:25 General Stated Complaint: RespSymp JACEY: 4 Exam Narrative Exam Narrative: Review of Systems: All systems reviewed & are unremarkable except as noted in HPI and below Well-developed, no acute distress NCAT PERRL, normal conjunctiva + Nasal turbinates inflamed nasal congestion noted, oropharynx without tonsillar enlargement or exudates, multiple carious teeth Bilateral TMs without effusion, bulging or drainage RRR Unlabored respiratory effort Course Vital Signs Vital signs: Vital Signs Temperature 37.1 C 03/31/24 14:21 Pulse 94 H 03/31/24 14:21 Respiratory Rate 18 03/31/24 14:21 Blood Pressure 125/80 03/31/24 14:21 Pulse Oximetry 94 03/31/24 14:21 Temperature 37.1 C 03/31/24 14:21 Temperature Source Temporal Artery Scan 03/31/24 14:21 Pulse 94 H 03/31/24 14:21 Respiratory Rate 18 03/31/24 14:21 Respiratory Effort Normal, Non-Labored 03/31/24 14:24 Respiratory Depth Normal 03/31/24 14:57 Blood Pressure 125/80 03/31/24 14:21 Blood Pressure Position Sitting 03/31/24 14:21 Pulse Oximetry 94 03/31/24 14:21 Oxygen Delivery Method Room Air 03/31/24 14:21 Oxygen Flow Rate 0 03/31/24 14:21 Pain Level 8 03/31/24 14:21 Medical Decision Making Emergent evaluation of URI symptoms. Initial differential includes viral illness, sinusitis, rhinitis, allergies. Patient refusing viral testing today. His examination does not reveal any significant abnormalities concerning for acute bacterial infection. There are no meningeal signs. I do recommend some [id number]-[id number] medications for supportive care like Claritin Mucinex and Flonase. I did advise that he can use Afrin for the next 3 days. He should follow-up with his PCP. Return precautions advised. Quality:SDOH Health Related Social Needs: Health related social needs housing instability, house d, with risk of homelessness(Z59.811) PFSH All Active Problems Chronic nasal congestion (Acute) Fracture of neck of right femur (Acute 10/11/23) S/P cannulated screw fixation: 10/12/2023 Nicotine dependence (Acute) ADHD (Acute) Tarsal tunnel syndrome (Acute) Torticollis (Acute) Insomnia (Acute) Anxiety disorder (Acute) Psoriasis (Chronic) Lichen planus (Acute) Opioid dependence (Acute) Dental caries (Acute) Dyspepsia (Acute) Sleep apnea (Acute) Prediabetes (Acute) Foot deformity (Acute) Folliculitis (Acute) Callus of foot (Acute) Foreign body of right eye (Acute) High ankle sprain of right lower extremity (Acute 10/29/18) Medical History Bursitis, olecranon Narcotic abuse in remission Surgical History No significant past surgical history Social History Smoking/Tobacco Use Status: Current every day Tobacco Type: cigarettes Smoking risk assessment performed?: Yes Alcohol Intake: never Drug use: Occasionally Substance use type: marijuana Housing: apartment Do you feel safe at home: Yes Do you feel safe in your relationship?: Yes
== END 2024-03-31 14:58 | disposition home or self-care (01) ==
PROVIDERS: Emergency Provider Emergency Medicine; PCP Family Medicine
DX: J34.2 Deviated nasal septum (principal); R09.81 Nasal congestion
CPT/HCPCS: 99283

== ENCOUNTER 2024-05-01 01:52 | Outpatient (CLI) | payer MEDICAID, SELFPAY ==
--- NOTE | 2024-05-01 06:42 | DI.CT_ITS ---
Exam(s) CT SINUS WO EXAM: CT SINUS WO CLINICAL HISTORY: chronic recurrent left-sided sinusitis,deviated septum,j34.2,j32.0. Evaluate for sinusitis. TECHNIQUE: Imaging Protocol: Axial computed tomography images with coronal and sagittal reformatted images were created and reviewed. COMPARISON: No exams were available for comparison FINDINGS: Frontal sinuses: Mucous retention in both frontal sinuses. Ethmoid air cells: Opacification of multiple ethmoid sinuses. Maxillary sinuses: There is complete opacification of the left maxillary sinus. Mucous retention is noted at the floor and wall of the right maxillary sinus. Sphenoid sinuses: Mild mucous retention in the left sphenoid sinus. Ostiomeatal complexes: Occluded bilaterally. Nasal cavity: Septum is deviated toward the left. Visualized regional soft tissues: No acute findings. Orbits: Unremarkable. Bones: Old fracture of the left orbital floor. Mastoid Air Cells: Normally aerated. Visualized portions of the brain: Unremarkable as visualized. IMPRESSION: Chronic pansinusitis, greatest involvement of the left maxillary and ethmoid sinuses. RADIATION DOSE DELIVERED: 111.17mGy.cm Total DLP DATA REPOSITORY: All CT scans at this facility are submitted to the National Radiology Data Registry (NRDR) Dose Index Registry (DIR) with the [employer] ([employer]). RADIATION OPTIMIZATION: All CT scans at this facility use at least one of these dose optimization te chniques: automated exposure control; mA and/or kV adjustment per patient size (includes targeted exa ms where dose is matched to clinical indication); or iterative reconstruction.
== END 2024-05-01 02:12 ==
PROVIDERS: PCP Student in an Organized Health Care Education/Training Program; Visit Provider Registered Nurse Maternal Newborn
DX: J32.4 Chronic pansinusitis (principal)
CPT/HCPCS: 70486